=== PATIENT | female | born 1960 | race Caucasian/White ===

== ENCOUNTER → 2017-07-29 17:47 | Outpatient (CLI) | payer OTHER, SELFPAY ==
--- NOTE | 2017-07-29 17:50 | DI.RAD.S_ITS ---
PROCEDURE: XR KNEE RT 3V INDICATIONS: knee sprain TECHNIQUE: 3 views of the knee were acquired. COMPARISON: None. FINDINGS: Bones: No fractures or dislocations. No suspicious bony lesions. Soft tissues: No joint effusion. No suspicious soft tissue calcifications. IMPRESSION: No trauma found. Dictated by: Coy Mancera M.D. on 07/29/2017 at 20:54 Approved by: Coy Mancera M.D. on 07/29/2017 at 20:54
== END ==
PROVIDERS: Family Provider Family Medicine; PCP Family Medicine; Visit Provider Family Medicine
DX: S83.91XA Sprain of unspecified site of right knee, initial encounter (principal)
CPT/HCPCS: 73562

== ENCOUNTER → 2017-09-24 09:24 | Outpatient (CLI) | payer OTHER, SELFPAY | PROVIDERS: Family Provider Family Medicine; PCP Family Medicine; Visit Provider Physician Assistant | DX: Z53.8 Procedure and treatment not carried out for other reasons (principal) ==

== ENCOUNTER → 2017-09-24 09:30 | Outpatient (REF) | payer OTHER, SELFPAY ==
[2017-09-24 10:06] LABS: Influenza A and B by PCR Rapid Negative (Negative)
== END ==
LOC: LAB 09:30
PROVIDERS: Family Provider Family Medicine; PCP Family Medicine; Visit Provider Physician Assistant
DX: R68.89 Other general symptoms and signs (principal)
CPT/HCPCS: 87400

== ENCOUNTER 2017-09-24 10:23 | Emergency (ER) | payer OTHER, SELFPAY ==
[2017-09-24 10:25] VITALS: BP 131/68; PULSE 66; RESP 18; TEMP 36.6; O2SAT 100
[2017-09-24 11:05] VITALS: BP 111/85; PULSE 66; RESP 18; O2SAT 97
--- NOTE | 2017-09-24 11:19 | DI.RAD.S_ITS ---
PROCEDURE: XR CHEST 2V INDICATIONS: SOB TECHNIQUE: 2 views of the chest were acquired. COMPARISON: [facility], , CHEST 2 VIEW, 08/07/2011, 14:32. FINDINGS: Surgical changes and devices: None. Lungs and pleura: No pleural effusions or pneumothorax. Lungs are clear. Mediastinum: Mediastinal contours are normal. Heart size is normal. Bones and chest wall: No suspicious bony abnormalities. Soft tissues appear unremarkable. IMPRESSION: No acute pulmonary process. Dictated by: Cherelle Sawyer M.D. on 09/24/2017 at 12:27 Approved by: Cherelle Sawyer M.D. on 09/24/2017 at 12:27
--- NOTE | 2017-09-24 11:27 | ED.HA ---
HPI - Headache General Chief Complaint: Headache Stated Complaint: 'PNUMONIA' Time Seen by Provider: 09/24/17 10:44 Source: patient and family Mode of arrival: ambulatory Limitations: no limitations History of Present Illness HPI Narrative: Patient presents to the emergency department from the walk-in clinic for evaluation of multiple symptoms over the past few days. She has had frontal headache, sinus drainage and sore throat. Additionally she has had wheezing and cough productive of yellowish sputum. She has had subjective fever at home and is generally unwell. MD Complaint: headache Onset (ago): day(s) Onset description: gradual Location: frontal Quality: aching and throbbing Exacerbating factors: light and noise Context: occurred at rest Associated symptoms: fever, nausea, vomiting, cough and shortness of breath Other symptoms: cough Treatments prior to arrival: none Related Data Home Medications Medication Instructions Recorded Confirmed epinephrine [EpiPen] 0.3 mg IM Q30M PRN 09/24/17 09/24/17 Previous Rx's Medication Instructions Recorded levothyroxine 0.1 mg PO QAM #90 tab 10/07/16 albuterol sulfate 2 puff INHALATION Q4-6H PRN #1 each 09/24/17 prednisone See Label Instructions PO PER PKG 09/24/17 DIR #21 each Allergies Allergy/AdvReac Type Severity Reaction Status Date / Time venom-honey bee Allergy Mild Verified 09/24/17 09:13 [BEE VENOM (HONEY BEE)] No Known Drug Allergies Allergy Unknown Verified 09/24/17 09:13 [NO KNOWN DRUG ALLERGIES] Review of Systems Review of Systems All systems reviewed & are unremarkable except as noted in HPI and below Constitutional Reports body ache(s), Reports chills, Reports fatigue, Reports fever(s), Denies lethargy and Denies weakness Eyes Denies change in vision, Denies eye discharge, Denies irritation and Denies loss of vision ENT Ears, Nose, Mouth, and Throat: Denies change in voice, Reports otalgia, Reports nasal discharge, Denies neck pain, Reports post nasal drip and Denies sore throat Cardiovascular Denies chest pain, Denies irregular heart rhythm, Denies lightheadedness, Denies palpitations, Reports dyspnea, Denies dyspnea on exertion and Denies orthopnea Respiratory Reports cough, Reports dyspnea, Denies dyspnea on exertion and Denies wheezing Gastrointestinal Gastrointestinal: Denies abdominal pain, Denies change in bowel habits, Denies diarrhea, Denies nausea and Denies vomiting Genitourinary Denies hematuria, Denies flank pain, Denies urinary incontinence and Denies urinary urgency Musculoskeletal Denies neck pain Integumentary/Breasts Denies pruritus, Denies erythema, Denies rash and Denies wounds Neurologic Denies confusion, Denies loss of vision and Denies weakness Psychiatric Denies anxiety, Denies confusion, Denies depression, Denies homicidal ideation and Denies suicidal ideation Endocrine Reports fatigue and Denies palpitations Hematologic/Lymphatic Denies easy bruising Allergic/Immunologic Denies wheezing PFSH Family History Mother Stroke Social History Smoking Status: Former smoker alcohol intake: never Exam Narrative Exam Narrative: 57-year-old female in mild distress, clutching her forehead Initial Vital Signs Initial Vital Signs: Vital Signs Temperature 97.8 F 09/24/17 10:25 Pulse Rate 66 09/24/17 10:25 Respiratory Rate 18 09/24/17 10:25 Blood Pressure 131/68 H 09/24/17 10:25 Pulse Oximetry 100 09/24/17 10:25 Const General: cooperative, well developed and in distress Nutritional Appearance: well nourished and thin Orientation: alert, awake, oriented x3 and not confused [facility] Head: normocephalic and atraumatic Ears: external ears normal and TM's normal bilaterally Nose: external nose normal and No nasal discharge Face and sinus: sinuses nontender, face symmetric, no sinus tenderness and No dry mucous membranes Mouth: oral mucosae normal and moist mucous membranes Teeth and gingiva: dentition normal Throat: tonsils normal and uvula midline Eyes General: appearance normal, both eyes and all related structures Eyelids: eyelids normal Conjunctivae: conjunctivae normal Sclera: sclerae normal Pupils: PERRL EOM: EOM intact bilaterally Neck Neck: normal visual inspection, trachea midline, No lymphadenopathy, No midline deformity and No JVD Lymphatic: No lymphedema Chest Chest: normal inspection of the chest Resp Effort & Inspection: normal respiratory effort, able to speak in complete sentences, no respiratory distress and no use of accessory muscles Auscultation: no rales, no rhonchi and wheezes Cardio Rate: regular rate Rhythm: regular rhythm Heart Sounds: no click, no gallops, no murmurs and no rubs Pulses: normal peripheral pulses GI Inspection: non-distended Palpation: soft, no hepatosplenomegaly, No guarding, No pulsatile mass and No tender Auscultation: normal bowel sounds Back/Spine/Pelvis Back: No CVA tenderness Cervical Spine: cervical ROM normal and No pain with cervical ROM Thoracic/Lumbar Spine: thoracic and lumbar spine normal to inspection Skin General: no rashes or lesions noted, No jaundice and No petechiae Neuro General: alert, oriented x3, gait normal and no focal motor deficits Speech: speech normal Other: NIH Stroke Scale 1a. LOC: Patient is alert and keenly responsive (0) 1b. LOC Questions: Patient answers both LOC questions accurately (0) 1c. LOC Commands: Patient performs both tasks correctly (0) 2. Best Gaze: Normal (0) 3. Visual: No visual loss (0) 4. Facial palsy: Normal symmetrical movements (0) 5. Motor arm: No drift (0) 6. Motor leg: No drift (0) 7. Limb ataxia: Absent (0) 8. Sensory: Normal (0) 9. Best language: No aphasia; normal (0) 10. Dysarthria: Normal (0) 11. Extinction and inattention: No abnormality (0) NIHSS: 0 Extrem General: full ROM, no clubbing, cyanosis or edema, no pedal edema and no calf tenderness Psych Appearance: well kempt Mental Status: mental status grossly normal Attitude: cooperative Thought Content: normal and suicidality Judgment: judgment good Course Orders Ordered: ED Orders 09/24/17 11:19 XR chest 2V Stat 09/24/17 11:40 Basic Metabolic Panel Stat Complete Blood Count AUTO DIFF Stat Lactate (Lactic Acid) Stat Procalcitonin Stat Discontinued Medications Albuterol (Ventolin) 2.5 mg INH NOW PRN PRN Reason: Wheezing Last Admin: 09/24/17 12:45 Dose: 2.5 mg Albuterol/Ipratropium (Duoneb) 3 ml INH NOW ONE Stop: 09/24/17 12:23 Last Admin: 09/24/17 12:31 Dose: 3 ml Sodium Chloride (Normal Saline 0.9%) 1,000 mls @ 1,000 mls/hr IV BOLUS ONE Stop: 09/24/17 12:16 Last Infusion: 09/24/17 13:56 Dose: 0 mls/hr Admin: 09/24/17 11:42 Dose: 1,000 mls/hr Ketorolac Tromethamine (Toradol) 15 mg IV NOW ONE Stop: 09/24/17 11:18 Last Admin: 09/24/17 11:28 Dose: Ketorolac Tromethamine (Toradol) 15 mg IV NOW ONE Stop: 09/24/17 11:20 Last Admin: 09/24/17 11:42 Dose: 15 mg Methylprednisolone (Solu-Medrol 125 Mg Vial) 125 mg IV NOW ONE Stop: 09/24/17 12:23 Last Admin: 09/24/17 12:42 Dose: 125 mg Metoclopramide HCl (Reglan) 10 mg IV NOW ONE Stop: 09/24/17 11:18 Last Admin: 09/24/17 11:41 Dose: 10 mg Reevaluation(s) Reevaluation #1: Patient has near complete resolution of symptoms after some bronchodilators and steroids as well as fluids. Her headache is all but gone and her lungs are clear. Vital Signs - 8 hr 09/24/17 10:25 09/24/17 11:05 09/24/17 12:35 Temperature 97.8 F Pulse Rate 66 66 69 Respiratory Rate 18 18 Blood Pressure 131/68 H Blood Pressure [Left Arm] 111/85 H 111/85 H Pulse Oximetry 100 97 99 09/24/17 12:37 09/24/17 12:43 09/24/17 13:53 Temperature 98.0 F Pulse Rate 86 71 96 H Respiratory Rate 14 14 20 Blood Pressure Blood Pressure [Left Arm] 133/68 H Pulse Oximetry 95 98 98 MDM - Headache Lab Data Result diagrams: 09/24/17 11:40 09/24/17 11:40 Lab Results 09/24/17 09/24/17 09/24/17 Range/Units 11:40 11:40 11:40 WBC 5.7 (4.5-11.0) X10^3/uL RBC 5.18 (4.0-5.2) X10^6/uL Hgb 15.5 (12.0-16.0) g/dL Hct 45.6 (36-46) % MCV 88.0 (80-100) fL MCH 30.0 (26-34) PG MCHC 34.1 (30-36) % RDW 13.4 (11.6-14.8) % Plt Count 275 (150-400) X10^3/uL Neut % (Auto) 58.2 (50-75) % Lymph % (Auto) 23.7 L (25-40) % [place] % (Auto) 12.5 (3-14) % Eos % (Auto) 5.1 H (2-4) % Baso % (Auto) 0.5 (0-2) % Neut # (Auto) 3300 (9208-1281) /uL Sodium 142 (137-145) mmol/L Potassium 3.7 (3.4-5.1) mmol/L Chloride 105 (98-107) mmol/L Carbon Dioxide 29 (22-32) mmol/L BUN 12 (7-17) mg/dL Creatinine 0.60 (0.52-1.04) mg/dL Estimated GFR > 60.0 (>60) mL/min BUN/Creatinine Ratio 20.0 (6-22) Glucose 96 (70-100) mg/dL Lactate (0.7-2.1) mmol/L Calcium 9.3 (8.4-10.2) mg/dL Procalcitonin < 0.05 (<0.5) ng/mL 07//18 Range/Units 11:40 WBC (4.5-11.0) X10^3/uL RBC (4.0-5.2) X10^6/uL Hgb (12.0-16.0) g/dL Hct (36-46) % MCV (80-100) fL MCH (26-34) PG MCHC (30-36) % RDW (11.6-14.8) % Plt Count (150-400) X10^3/uL Neut % (Auto) (50-75) % Lymph % (Auto) (25-40) % [place] % (Auto) (3-14) % Eos % (Auto) (2-4) % Baso % (Auto) (0-2) % Neut # (Auto) (9777-9250) /uL Sodium (137-145) mmol/L Potassium (3.4-5.1) mmol/L Chloride (98-107) mmol/L Carbon Dioxide (22-32) mmol/L BUN (7-17) mg/dL Creatinine (0.52-1.04) mg/dL Estimated GFR (>60) mL/min BUN/Creatinine Ratio (6-22) Glucose (70-100) mg/dL Lactate 0.9 (0.7-2.1) mmol/L Calcium (8.4-10.2) mg/dL Procalcitonin (<0.5) ng/mL Imaging Data Chest x-ray: Radiologist's impression: PROCEDURE: XR CHEST 2V INDICATIONS: SOB TECHNIQUE: 2 views of the chest were acquired. COMPARISON: [facility], , CHEST 2 VIEW, 08/07/2011, 14:32. FINDINGS: Surgical changes and devices: None. Lungs and pleura: No pleural effusions or pneumothorax. Lungs are clear. Mediastinum: Mediastinal contours are normal. Heart size is normal. Bones and chest wall: No suspicious bony abnormalities. Soft tissues appear unremarkable. IMPRESSION: No acute pulmonary process. Dictated by: Cherelle Sawyer M.D. on 09/24/2017 at 12:27 Approved by: Cherelle Sawyer M.D. on 09/24/2017 at 12:27 [facility] Narrative Medical decision making narrative: Patient presents with multiple symptoms including headache, runny nose, sinus congestion and drainage cough and wheezing. She has had low-grade fever as. Widespread symptoms are more consistent with a viral syndrome, chest x-ray does not suggest pneumonia hand labs are unremarkable. Procalcitonin is undetectable. Patient had tremendous improvement with fluids and bronchodilators. Though patient does have yellowish sputum her presentation is most consistent with a viral syndrome and antibiotics are not indicated at this time. Discharge Plan Departure Patient Disposition: Home, Self-Care Clinical Impression: Upper respiratory infection, viral Discharge Date/Time: 09/24/17 14:00 Interventions: ED Discharge Assessment Last Done: 09/24/17 14:18 Instructions: DI for Viral Upper Respiratory Infection -- Adult Activity Restrictions/Additional Instructions: *You have been diagnosed with [ acute viral upper respiratory infection ] *What to do: *Take medications as directed. Prescriptions have been electronically transmitted to [facility] at [facility] request *Follow up with your primary care provider in 2-3 days, call for an appointment. Let them know you were seen in the Emergency Department and that we ask that you be seen in follow up *Return to ER if you should have any new, worsening or concerning symptoms, such as [worsening difficulty with breathing, chest pain, vomiting, other bothersome symptoms ] Prescriptions: New prednisone 10 mg tablets,dose pack See Label Instructions PO PER PKG DIR Qty: 21 RF: 0 albuterol sulfate 90 mcg/actuation aerosol powdr breath activated 2 puff INHALATION Q4-6H PRN (Reason: shortness of breath or wheezing) Qty: 1 RF: 0 No Action levothyroxine 100 MCG tablet 0.1 mg PO QAM Qty: 90 RF: 3 epinephrine [EpiPen] 0.3 mg/0.3 mL Auto-Injector 0.3 mg IM Q30M PRN (Reason: Allergic Reaction) RF: 0 Referrals: Malcolm Kinsey MD [Primary Care Provider] -
[2017-09-24] MEDS: METOCLOPRAMIDE 10 MG/2 ML INJ IV (11:41)
[2017-09-24] MEDS: KETOROLAC 60 MG/2 ML VIAL 15 MG IV (11:42)
[2017-09-24] MEDS: SODIUM CHLORIDE 0.9% 1,000 ML 1000 ML IV (11:42)
[2017-09-24 11:56] LABS: Add Manual Diff / Slide Review NO; Basophils Percent Auto 0.5 % (0-2); Eosinophils Percent Auto 5.1 % (2-4); Hematocrit 45.6 % (36-46); Hemoglobin 15.5 g/dL (12.0-16.0); Lymphocytes Percent Auto 23.7 % (25-40); Mean Corpuscular HGB Conc 34.1 % (30-36); Monocytes Percent Auto 12.5 % (3-14); Neutrophils Absolute Auto 3300 /uL (3000-5900); Neutrophils Percent Auto 58.2 % (50-75); Platelet Count 275 X10^3/uL (150-400); Red Blood Cell Count 5.18 X10^6/uL (4.0-5.2); Red Cell Distribution Width 13.4 % (11.6-14.8); White Blood Cell Count 5.7 X10^3/uL (4.5-11.0)
[2017-09-24 12:07] LABS: Blood Urea Nitrogen 12 mg/dL (7-17); Calcium 9.3 mg/dL (8.4-10.2); Carbon Dioxide 29 mmol/L (22-32); Chloride 105 mmol/L (98-107); Estimated Glomerular Filt Rate > 60.0 mL/min (>60); Glucose 96 mg/dL (70-100); HEMOLYSIS < 15 (0-50); Lactate (Lactic Acid) 0.9 mmol/L (0.7-2.1); Potassium 3.7 mmol/L (3.4-5.1); Sodium 142 mmol/L (137-145)
[2017-09-24] MEDS: ALBUTEROL/IPRATROPIUM 3 ML AMPUL INH (12:31)
[2017-09-24 12:35] VITALS: BP 111/85; PULSE 69; O2SAT 99
[2017-09-24 12:37] VITALS: PULSE 86; RESP 14; O2SAT 95
[2017-09-24] MEDS: methylPREDNISolone 125 MG/2 ML VIAL IV (12:42)
[2017-09-24 12:43] VITALS: PULSE 71; RESP 14; O2SAT 98
[2017-09-24] MEDS: ALBUTEROL 2.5 MG/3 ML NEB (ADULT) INH (12:45)
[2017-09-24 12:50] LABS: Procalcitonin < 0.05 ng/mL (<0.5)
[2017-09-24 13:53] VITALS: BP 133/68; PULSE 96; RESP 20; TEMP 36.7; O2SAT 98
== END 2017-09-24 14:00 | disposition home or self-care (01) ==
PROVIDERS: Emergency Provider Emergency Medicine; Family Provider Family Medicine; PCP Family Medicine
DX: J06.9 Acute upper respiratory infection, unspecified (principal); B97.89 Other viral agents as the cause of diseases classified elsewhere
CPT/HCPCS: 36591; 71046; 80048; 83605; 84145; 85025; 87400; 94640; 96361; 96374; 96375; 99283; 99285; J1885; J2765; J2930; J7613

== ENCOUNTER → 2017-12-25 06:31 | Outpatient (CLI) | payer OTHER, SELFPAY ==
--- NOTE | 2017-12-25 06:34 | DI.MRI.S_ITS ---
PROCEDURE: MR KNEE RT WO CON INDICATIONS: Right knee pain TECHNIQUE: Noncontrast sagittal PD fast spin echo and T2 fast spin echo with fat saturation, sagittal 3-D FLASH with fat saturation; coronal T1 spin echo and PD fast spin echo with fat saturation, and axial PD fast spin echo with fat saturation through the knee. COMPARISON: [facility], CR, XR KNEE RT 3V, 07/29/2017, 17:51. FINDINGS: Image quality: Excellent. Menisci: The medial and lateral menisci demonstrate normal morphology and internal signal. The meniscal root ligaments appear intact. Cruciate ligaments: The anterior and posterior cruciate ligaments appear intact. Medial structures: The medial collateral ligament appears intact. Visualized portions of the pes anserinus tendons appear normal. No abnormal bursal fluid. Lateral structures: The lateral collateral ligament, long and short heads of the biceps femoris tendon appear intact. The popliteus tendon appears normal. Iliotibial band appears normal. Anterior structures: The quadriceps and patellar tendons appear intact. There is mild T2 signal alteration within the patellar tendon at the patellar insertion site. Patellar alignment is normal. No femoral trochlear dysplasia or ventral trochlear prominence. No edema in the infrapatellar fat pad. Bones and cartilage: No bone marrow contusions or fractures. Moderate cartilage loss overlies the medial patellar facet. Moderate diffuse articular cartilage loss overlies the mid and anterior weightbearing aspects of the medial femoral condyle. Mild diffuse articular cartilage loss overlies the weightbearing aspects of the medial tibial plateau. Mild diffuse articular cartilage loss overlies the weightbearing aspects of the lateral femoral condyle and lateral tibial plateau. Joint space: There is physiologic knee joint fluid. No Galloway's cyst. Normal appearing synovial plicae are incidentally noted. IMPRESSION: 1. No internal derangement. 2. Tricompartmental articular cartilage loss. 3. Mild patellar tendinitis. Dictated by: Nohemi Levy M.D. on 12/25/2017 at 9:04 Approved by: Nohemi Levy M.D. on 12/25/2017 at 9:07
== END ==
PROVIDERS: Family Provider Family Medicine; PCP Family Medicine; Visit Provider Registered Nurse
DX: M25.561 Pain in right knee (principal); M76.51 Patellar tendinitis, right knee
CPT/HCPCS: 73721

== ENCOUNTER → 2018-04-27 09:11 | Outpatient (CLI) | payer OTHER, SELFPAY ==
[2018-04-27 10:15] LABS: Cholesterol 228 mg/dL (140-199); HDL Cholesterol 75 mg/dL (40-60); LDL Cholesterol Calculated 139 mg/dL (<100); Triglycerides 70 mg/dL (35-150)
[2018-04-27 10:41] LABS: Thyroid Stimulating Hormone 7.37 uIU/mL (0.47-4.68)
== END ==
PROVIDERS: Family Provider Family Medicine; PCP Family Medicine; Visit Provider Family Medicine
DX: E03.9 Hypothyroidism, unspecified (principal); E78.2 Mixed hyperlipidemia
CPT/HCPCS: 36415; 80061; 84443

== ENCOUNTER → 2018-04-30 15:14 | Outpatient (CLI) | payer OTHER, SELFPAY ==
--- NOTE | 2018-04-30 15:18 | DI.RAD.S_ITS ---
PROCEDURE: XR SHOULDER LT MIN 2V INDICATIONS: pain TECHNIQUE: 3 views of the shoulder were acquired. COMPARISON: None. FINDINGS: Bones: No fractures or dislocations. No suspicious bony lesions. Visualized ribs appear intact. Soft tissues: No suspicious soft tissue calcifications. IMPRESSION: No fracture or dislocation. Dictated by: Iraj Espino M.D. on 04/30/2018 at 17:18 Approved by: Iraj Espino M.D. on 04/30/2018 at 17:19
--- NOTE | 2018-04-30 15:18 | DI.RAD.S_ITS ---
PROCEDURE: XR CERVICAL SPINE 2V OR 3V INDICATIONS: pain TECHNIQUE: 3 view(s) of the cervical spine were acquired. COMPARISON: None. FINDINGS: Bones: No fractures or dislocations to the T1 level. There is straightening of cervical curvature. The lateral masses of C1 appear intact on the odontoid view. No suspicious bony lesions. There is degenerative disc disease, moderate at C5-C6 and C6-C7, mild at C3-C4 and C4-C5. Soft tissues: No prevertebral soft tissue swelling. IMPRESSION: Modderate degenerative disc disease. Dictated by: Iraj Espino M.D. on 04/30/2018 at 17:19 Approved by: Iraj Espino M.D. on 04/30/2018 at 17:23
== END ==
PROVIDERS: PCP Family Medicine; Visit Provider Family Medicine
DX: M25.512 Pain in left shoulder (principal); M50.31 Other cervical disc degeneration, high cervical region
CPT/HCPCS: 72040; 73030

== ENCOUNTER → 2018-05-11 16:09 | Outpatient (CLI) | payer OTHER, SELFPAY | PROVIDERS: PCP Family Medicine; Visit Provider Family Medicine | DX: M85.88 Other specified disorders of bone density and structure, other site (principal); Z78.0 Asymptomatic menopausal state; E07.9 Disorder of thyroid, unspecified; M06.9 Rheumatoid arthritis, unspecified; Z82.62 Family history of osteoporosis; Z87.891 Personal history of nicotine dependence | CPT/HCPCS: 77080 ==

== ENCOUNTER → 2018-06-04 10:36 | Outpatient (CLI) | payer OTHER, SELFPAY | PROVIDERS: PCP Family Medicine; Visit Provider Family Medicine | DX: M47.812 Spondylosis without myelopathy or radiculopathy, cervical region (principal); M79.2 Neuralgia and neuritis, unspecified | CPT/HCPCS: 95885; 95886; 95910 ==

== ENCOUNTER → 2018-06-22 11:16 | Outpatient (CLI) | payer OTHER, SELFPAY ==
--- NOTE | 2018-06-22 11:17 | DI.MG.S_ITS ---
BILATERAL DIGITAL SCREENING MAMMOGRAM 3D/2D WITH CAD: 06/22/2018 CLINICAL: Routine screening. Comparison is made to exam dated: 06/05/2006 [facility]. The tissue of both breasts is heterogeneously dense. This may lower the sensitivity of mammography. Current study was also evaluated with a Computer Aided Detection (CAD) system. There is a focal asymmetry in the left breast at 2 o'clock middle depth. No other significant masses, calcifications, or other findings are seen in either breast. IMPRESSION: INCOMPLETE: NEEDS ADDITIONAL IMAGING EVALUATION The focal asymmetry in the left breast is indeterminate. Additional views with possible ultrasound are recommended. This exam was interpreted at Station ID: [id number]. NOTE: For mammograms, a report in lay terms will be sent to the patient. Approximately 15% of breast malignancies will not be visualized mammographically. In the management of a palpable breast mass, a negative mammogram must not discourage biopsy of a clinically suspicious lesion. Electronically Signed By: Kacy luna/marisol:06/22/2018 12:46:29 letter sent: Additional Imaging Needed ACR BI-RADS Category 0: Incomplete [id number]
== END ==
PROVIDERS: PCP Family Medicine; Visit Provider Family Medicine
DX: Z12.31 Encounter for screening mammogram for malignant neoplasm of breast (principal)
CPT/HCPCS: 77063; 77067

== ENCOUNTER → 2018-07-13 09:48 | Outpatient (CLI) | payer OTHER, SELFPAY ==
--- NOTE | 2018-07-13 09:51 | DI.MG.S_ITS ---
UNILATERAL LEFT DIGITAL DIAGNOSTIC MAMMOGRAM 3D/2D WITH ADDITIONAL VIEWS: 07/13/2018 CLINICAL: Additional evaluation requested from prior study. Comparison is made to exams dated: 06/22/2018 mammogram and 06/05/2006 mammogram - [facility]. The tissue of left breast is heterogeneously dense. This may lower the sensitivity of mammography. There is 1.1 cm oval equal density focal asymmetry in the left breast at 1 o'clock middle depth. This is seen in additional views. No other significant masses or calcifications are seen in the breast. IMPRESSION: INCOMPLETE: NEEDS ADDITIONAL IMAGING EVALUATION The 1.1 cm oval equal density focal asymmetry in the left breast is indeterminate. An ultrasound is recommended. This exam was interpreted at Station ID: [id number]. NOTE: For mammograms, a report in lay terms will be sent to the patient. Approximately 15% of breast malignancies will not be visualized mammographically. In the management of a palpable breast mass, a negative mammogram must not discourage biopsy of a clinically suspicious lesion. SUMMARY: The recommended ultrasound is scheduled to immediately follow this examination. Electronically Signed By: Ronen etienne/marisol:07/13/2018 10:25:11 ACR BI-RADS Category 0: Incomplete [id number]
--- NOTE | 2018-07-13 09:51 | DI.US.S_ITS ---
ULTRASOUND OF LEFT BREAST: 07/13/2018 CLINICAL: Patient returns today to evaluate a focal asymmetry in the left breast. Comparison is made to exams dated: 07/13/2018 mammogram, 06/22/2018 mammogram, and 06/05/2006 mammogram - [facility]. Color flow and real-time ultrasound of the left breast were performed. [place] scale images of the real-time examination were reviewed. There is 1.5 cm x 0.9 cm x 1.1 cm oval complex cyst in the left breast at 2 o'clock middle depth 4 cm from the nipple. This oval complex cyst is hypoechoic. This correlates with mammography findings. Color flow imaging demonstrates that there is no vascularity present. IMPRESSION: SUSPICIOUS OF MALIGNANCY The 1.5 cm x 0.9 cm x 1.1 cm oval cystic lesion in the left breast is consistent with a complex cyst and is at a low suspicion for malignancy. However, an ultrasound guided biopsy is recommended. Findings were discussed with the patient by Dr. Mancera during today's visit. This exam was interpreted at Station ID: [id number]. Electronically Signed By: Ronen Schroeder M.D. at/:07/13/2018 17:50:52 letter sent: Biopsy Required Ultrasound BI-RADS: 4a Suspicious abnormality - low suspicion for malignancy
== END ==
PROVIDERS: PCP Family Medicine; Visit Provider Family Medicine
DX: R92.8 Other abnormal and inconclusive findings on diagnostic imaging of breast (principal); N60.02 Solitary cyst of left breast
CPT/HCPCS: 76642; 77065; G0279

== ENCOUNTER → 2018-07-24 07:45 | Outpatient (CLI) | payer OTHER, SELFPAY ==
--- NOTE | 2018-07-24 | DI.MG.S_ITS ---
UNILATERAL LEFT DIGITAL DIAGNOSTIC MAMMOGRAM POST-NEEDLE BIOPSY: 07/24/2018 CLINICAL: Left breast cyst. Post clip placement. Comparison is made to exams dated: 07/13/2018 ultrasound, 07/13/2018 mammogram, 06/22/2018 mammogram, and 06/05/2006 mammogram - [facility]. The tissue of left breast is heterogeneously dense. This may lower the sensitivity of mammography. There is a marker clip in the appropriate position in the left breast at 2 o'clock middle depth. IMPRESSION: POST PROCEDURE MAMMOGRAM FOR MARKER PLACEMENT There was a successful marker clip placement in the left breast middle depth. This exam was interpreted at Station ID: [id number]. NOTE: For mammograms, a report in lay terms will be sent to the patient. Approximately 15% of breast malignancies will not be visualized mammographically. In the management of a palpable breast mass, a negative mammogram must not discourage biopsy of a clinically suspicious lesion. Electronically Signed By: Jerri goff/marisol:07/24/2018 09:25:28 ACR BI-RADS Category Post-procedure mammogram for marker placement
--- NOTE | 2018-07-24 | PATH_ITS ---
[facility] Accession Number: [id number] . 01 Material submitted: . breast - LEFT BREAST . 01 Clinical history: . 2:00 4CM FN . 01 Diagnosis: A. Left Breast, 2:00, 4 cm from Nipple, Biopsy: Fragments of cyst wall/dilated duct with associated histiocytic reaction, mild chronic inflammation, and rare microcalcifications. Background breast parenchyma with focal usual ductal hyperplasia, apocrine metaplasia, and associated microcalcifications. Negative for atypia, carcinoma in situ, and invasive malignancy. MRV/07/30/2018 . 01 Electronically signed: . Mae Blanco MD, Pathologist NPI- [id number] . 01 Gross description: . Received in formalin and labeled left breast 2 o'clock 4 cm from nipple. Tissue is received with plastic filter. Tissue is loose in container. Specimen consists of multiple fragments of lester-yellow soft tissue and minute fragments of hemorrhagic material measuring 2.2 x 0.5 x 0.3 cm in aggregate. All tissue is entirely submitted in one cassette. Per the requisition, the sample was collected on 07/24/2018 at 9:24 a.m. Total fixation time is between 24 and 48 hours. (MR:[id number]) /FRR . 01 Microscopic: . Special stains are performed on block A1, including AFB, GMS for fungus, and Gram stain, with appropriately staining external controls. The biopsy is negative for bacterial or fungal organisms. Deeper levels are examined. There is no polarizable material. . 01 Pathologist provided ICD-10: N63.20 . 01 CPT . 819619, 467976, 987112, 975406 Performed at: [facility] [address] [place] [address] [id number] MD Michael Antoine MD Phone: [phone]
--- NOTE | 2018-07-24 07:48 | DI.US.S_ITS ---
ULTRASOUND GUIDED BIOPSY LEFT BREAST USING VACUUM DEVICE WITH MARKING DEVICE INSERTED AND POST DIGITAL MAMMOGRAPHIC AND ULTRASOUND IMAGIN07/24/2018 CLINICAL: Left breast mass. PATIENT CONSENT: Risks (minor bleeding, infection, vasovagal reaction and repeat procedure), benefits and alternatives were explained to the patient and written informed consent was obtained. Correlation is made to exams dated: 07/24/2018 mammogram, 07/13/2018 ultrasound, 07/13/2018 mammogram, 06/22/2018 mammogram, 06/05/2006 mammogram, and 06/05/2006 [facility]. An ultrasound guided biopsy using real-time ultrasound was performed for the 1.5 cm x 0.9 cm x 1.1 cm oval cyst located in the left breast at 2 o'clock middle depth. This was described on the previous ultrasound report. The skin was prepped in the usual manner. Local anesthetic was administered to the access site. A skin gibran was made in the breast. The abnormality was approached from the lateral aspect. A 13 gauge biopsy needle was placed adjacent to the abnormality under ultrasound guidance. Once the needle was documented to be in the correct location, three specimens were obtained using the Mammotome biopsy system. A celero clip was inserted into the biopsy cavity. A sterile dressing was applied to the access site. Post procedure digital mammographic and ultrasound imaging demonstrates the location device at the targeted area and partial removal of the abnormality. The specimens were sent to the laboratory for pathological analysis. IMPRESSION: ULTRASOUND GUIDED BIOPSY BENIGN Ultrasound guided biopsy of the 1.5 cm x 0.9 cm x 1.1 cm cyst in the left breast at 2 o'clock middle depth was successful. Pathology indicates benign fragments of cyst wall/dilated ducts, apocrine metaplasia (AM), usual ductal hyperplasia ([facility]U), and chronic inflammation. Pathology results are concordant with imaging findings. Return to annual mammogram screening schedule is recommended. This exam was interpreted at Station ID: [id number]. Jerri goff,aty/:08/03/2018 17:32:12
== END ==
PROVIDERS: PCP Family Medicine; Visit Provider Family Medicine
DX: N60.02 Solitary cyst of left breast (principal); N60.82 Other benign mammary dysplasias of left breast; N61.0 Mastitis without abscess; R92.0 Mammographic microcalcification found on diagnostic imaging of breast
CPT/HCPCS: 19083; 77065

== ENCOUNTER 2018-12-29 13:34 | Emergency (ER) | payer OTHER, SELFPAY ==
--- NOTE | 2018-12-29 13:36 | DI.RAD.S_ITS ---
PROCEDURE: XR ANKLE LT MIN 3V INDICATIONS: rolled ankle TECHNIQUE: 3 views of the ankle were acquired. COMPARISON: None. FINDINGS: Bones: No fractures or dislocations. Ankle mortise is normally aligned. No suspicious bony lesions. Soft tissues: No tibiotalar joint effusion. Achilles tendon appears normal. IMPRESSION: No gross acute ankle fracture or dislocation. Mild soft tissue swelling over lateral malleolus. Dictated by: Devon Lemons M.D. on 12/29/2018 at 13:55 Approved by: Devon Lemons M.D. on 12/29/2018 at 14:03
[2018-12-29 13:37] VITALS: BP 141/80; PULSE 71; RESP 15; TEMP 36.4; O2SAT 100; BMI 23.7
[2018-12-29 14:00] VITALS: PULSE 88
--- NOTE | 2018-12-29 14:00 | PC.NURSE ---
Moving position from squatting to standing, took a step and then felt pain in foot/ankle. lower extremity appears atraumatic. No gross deformity.
[2018-12-29] MEDS: ACETAMINOPHEN 325 MG TABLET 975 MG PO (14:12)
--- NOTE | 2018-12-29 14:26 | ED_ITS ---
HPI - Extremity Injury (Lower) <Abel PerezALEM RichardP - Last Filed: 12/29/18 16:57> General Chief Complaint: Extremity Injury, Lower Stated Complaint: POP IN LEFT ANKLE Time Seen by Provider: 12/29/18 13:41 Source: patient and family Mode of arrival: Wheelchair Limitations: no limitations History of Present Illness HPI Narrative: This is 58 year old female, non-smoker, who presents to ED with family with chief complaint of left lateral malleolar pain. The left leg got numb after she was sitting on the floor with her lower leg folded under her upper leg, she stood up to stretch and put her left leg forward and felt immediately something pop in her ankle. Patient had difficult time bearing weight after this. Patient had left foot surgery in the past. Patient denies tingling or numbness to her left lower leg. Patient states is able to move her toes. Related Data Home Medications Medication Instructions Recorded Confirmed epinephrine [EpiPen] 0.3 mg IM Q30M PRN 09/24/17 04/30/18 calcium carbonate 600 mg calcium 600 mg PO DAILY tab 05/13/18 (1,500 mg) tablet cholecalciferol (vitamin D3) 2,000 2,000 unit PO DAILY 05/13/18 unit capsule Previous Rx's Medication Instructions Recorded albuterol sulfate 2 puff INHALATION Q4-6H PRN #1 each 09/24/17 levothyroxine 112 mcg tablet 112 mcg PO QAM #90 tab 04/30/18 Allergies Allergy/AdvReac Type Severity Reaction Status Date / Time venom-honey bee Allergy Mild Verified 12/29/18 13:36 [BEE VENOM (HONEY BEE)] No Known Drug Allergies Allergy Unknown Verified 12/29/18 13:36 [NO KNOWN DRUG ALLERGIES] Review of Systems <Abel PerezHansNohemi [facility] - Last Filed: 12/29/18 16:57> Review of Systems Narrative: General: Denies fever, chills, fatigue, malaise, sweats. HEENT: Denies sinus pain, ear pain, sore throat, difficulty swallowing, dizziness. Respiratory: Denies dyspnea, cough, wheezing, hemoptysis, sputum. Cardiovascular: Denies chest pain, palpitations, orthopnea, edema. Gastrointestinal: Denies nausea, vomiting, abdominal pain, diarrhea, constipation, melena. : Denies dysuria, frequency, incontinence, hematuria, urinary retention. Musculoskeletal: See HPI Skin: Denies rash, skin lesions, or other. Neurologic: Denies weakness, headache, numbness, change in speech, confusion, seizures, incoordination. Psychiatric: No concerning psychosocial issues. 12-point review of systems is negative except for those stated above. Patient History <MADISON Chen - Last Filed: 12/29/18 16:57> Medical History Carpal tunnel syndrome (Chronic ~2011) Foot pain (Chronic ~1984) Hyperthyroidism (Chronic) Migraines (Chronic ~1986) Rheumatoid arthritis (Chronic ~1994) Total blindness (Chronic ~1958) Surgical History Anesthesia (Resolved) History of foot surgery (Resolved ~1986) History of hand surgery (Resolved ~2011) Family History Mother Stroke Social History Smoking Status: Former smoker alcohol intake: never alcohol intake frequency: 0-2 drinks per day Substance Use Type: does not use Exam <MADISON Chen - Last Filed: 12/29/18 16:57> Narrative Exam Narrative: General appearance: well developed, well nourished, in obvious distress from pain. Head: normocephalic, atraumatic, no scalp lesions, non-tender. Eye: pupil equal, round. EOMI. Nose: nares patent. Oral: mucosa moist. Neck/Thyroid: neck supple, full range of motion, no visible masses. Skin: no suspicious rashes, lesions over visible areas. Warm and dry. Heart: no clubbing, no cyanosis, no edema. Lungs: Breathing even and unlabored. No stridor. No accessory muscles used. Chest: normal shape and expansion. Abdomen: non-obese, non-distended. Neurologic: alert and oriented. Cognitive exam, DESTATICIZER FEEDER and PNS grossly intact on informal exam. Psych: good eye contact, normal affect. Initial Vital Signs Initial Vital Signs: Vital Signs Temperature 97.6 F 12/29/18 13:37 Pulse Rate 71 12/29/18 13:37 Respiratory Rate 15 12/29/18 13:37 Blood Pressure 141/80 H 12/29/18 13:37 Pulse Oximetry 100 12/29/18 13:37 Extrem Left lower extremity: hip/thigh Details: normal to inspection; no tenderness, knee Details: normal to inspection; no tenderness, lower leg Details: normal to inspection; no tenderness and edema noted, ankle Details: normal to inspection, tenderness Location: of the lateral malleolus, swelling (Very mild lateral mal leolar), abnormal ROM Details: pain with active ROM, pain with passive ROM and with range as follows (Left toes) and achilles tendon exam abnormal (Due to pain) Details: no step-off noted and no tenderness to palpation; no warmth, no lacerations and no ecchymosis and foot Details: normal capillary refill, normal to inspection, toes with normal ROM, vascular exam Details: dorsalis pedis pulse present and normal capillary refill and motor-sensory exam Details: light-touch normal <Bassam Gonzalez DO - Last Filed: 12/29/18 17:03> Initial Vital Signs Initial Vital Signs: Vital Signs Temperature 97.6 F 12/29/18 13:37 Pulse Rate 71 12/29/18 13:37 Respiratory Rate 15 12/29/18 13:37 Blood Pressure 141/80 H 12/29/18 13:37 Pulse Oximetry 100 12/29/18 13:37 Procedures <MADISON Chen - Last Filed: 12/29/18 16:57> Orthopedic Splinting/Casting Injury #1: Side: left Lower Extremity Injury Location: ankle Lower Extremity Immobilizer: AirCast Other Orthopedic Equipment: other (Declined crutches reports will get a pair from [employer]) Post splinting neuro exam: intact Post splinting vascular exam: intact Placed by: Nursing Scores <MADISON Chen - Last Filed: 12/29/18 16:57> GCS [place] coma scale eye opening: Spontaneous Kavin coma scale verbal response: Orientated [place] coma scale motor response: Obey commands [place] coma scale total score: 15 Course <MADISON Chen Last Filed: 12/29/18 16:57> Orders Ordered: ED Orders 12/29/18 13:36 XR ankle LT min 3V Stat Discontinued Medications Acetaminophen (Tylenol) 975 mg PO NOW ONE Stop: 12/29/18 13:57 Last Admin: 12/29/18 14:12 Dose: 975 mg Documented by: PAO Vital Signs Vital signs: Vital Signs - 8 hr 12/29/18 13:37 12/29/18 14:00 12/29/18 15:00 Temperature 97.6 F Pulse Rate 71 80 Pulse Rate [Right Dorsalis Pedis] 88 Respiratory Rate 15 12 Blood Pressure 141/80 H Blood Pressure [Left Arm] 142/72 H Pulse Oximetry 100 98 <Bassam Gonzalez DO - Last Filed: 12/29/18 17:03> Orders Ordered: ED Orders 12/29/18 13:36 XR ankle LT min 3V Stat Discontinued Medications Acetaminophen (Tylenol) 975 mg PO NOW ONE Stop: 12/29/18 13:57 Last Admin: 12/29/18 14:12 Dose: 975 mg Documented by: PAO Vital Signs Vital signs: Vital Signs - 8 hr 12/29/18 13:37 12/29/18 14:00 12/29/18 15:00 Temperature 97.6 F Pulse Rate 71 80 Pulse Rate [Right Dorsalis Pedis] 88 Respiratory Rate 15 12 Blood Pressure 141/80 H Blood Pressure [Left Arm] 142/72 H Pulse Oximetry 100 98 MDM - Extremity Injury (Lower) <MADISON Chen - Last Filed: 12/29/18 16:57> Differential Diagnosis Differential diagnosis: Likely ankle sprain and strain and ankle fracture Medical Records Attestation: I reviewed the patient's medical records. Imaging Data XR-Ankle LT: Radiologist's impression: [address] [address] XRay Report Signed Patient: Mary Ramirez AMR#: [id number] : 9Acct:[id number] Age/Sex: 58 / FDate of Service: 12/29/18 Loc: ED Accession Number: [id number] Procedure: XR ankle LT min 3V Ordering Provider: Bassam Gonzalez D.O. PROCEDURE: XR ANKLE LT MIN 3V INDICATIONS: rolled ankle TECHNIQUE: 3 views of the ankle were acquired. COMPARISON: None. FINDINGS: Bones: No fractures or dislocations. Ankle mortise is normally aligned. No suspicious bony lesions. Soft tissues: No tibiotalar joint effusion. Achilles tendon appears normal. IMPRESSION: No gross acute ankle fracture or dislocation. Mild soft tissue swelling over lateral malleolus. Dictated by: Devon Lemons M.D. on 12/29/2018 at 13:55 Approved by: Devon Lemons M.D. on 12/29/2018 at 14:03 [facility] Narrative Medical decision making narrative: This is 58-year-old female presents to ED with left lateral ankle pain and popping sensation after she stood up because of numbness from sitting position to stretch her left back and stepped forward. There was no obvious deformity noted per inspection. Patient has significant tenderness with very light touch on left lateral ankle. Achilles tendon exam was normal. Motor exam on her left toes, light sensory exam, and pedal pulse were intact. X-ray test shows no acute findings. Given patient's significant discomfort on affected site, patient had placed done air cast immobilizer for comfort. Patient declined Motrin due to stomach irritation. Patient was medicated with Tylenol and advised continue to take this along RICE therapy. Crutches were offered but patient and family declined stating that they will get it from [employer] store. Return precautions were discussed with the patient and advised reimaging test patient persists after 10 days to 2 weeks. Patient and family verbalized understanding and agrees with the treatment plan. Discharge Plan Departure Patient Disposition: Home Clinical Impression: Ankle sprain and strain Discharge Date/Time: 12/29/18 15:03 Instructions: DI for Ankle Sprain Activity Restrictions/Additional Instructions: You have been diagnosed with [ankle sprain. There was no acute findings per x- ray test such as dislocation or fracture]. What to do: Please use ?RICE? therapy such as Rest, Ice, Compression/Spliint/Acewra, and Elevation above the chest level. Ice the area for next 24-48 hrs after the initial injury. Air cast splint has applied for comfort. As soon as acute pain has decreased, please exercise or ankle with gentle stretch such as riding on alphabet with her foot. Please try to avoid getting swelling to the affected site since this may cause increasing pain. You could use OTC Tylenol and or Ibuprofen as needed for pain. Please monitor for increasing pain, swelling, tingling/numbness, unable to move affected/below the injury site, cool limbs. *Take your medications as directed. You can take [id number] Tylenol up to 4000 mg in 24 hr period. If you can tolerate Motrin or ibuprofen products this will be a good medicine for inflammation and pain. *Follow up with your primary care provider in 2-3 days, call for an appointment. Let them know you were seen in the ED and that we asked you to be seen in follow up. *Return to ED if you have any new, worsening, or concerning symptoms, such as [ chest pain, breathing difficulty, unable to tolerate fluids, weakness to her foot, sensation difficulty or any acute concerns]. Prescriptions: No Action cholecalciferol (vitamin D3) 2,000 unit capsule 2,000 unit PO DAILY RF: 0 calcium carbonate [Calcium 600] 600 mg calcium (1,500 mg) tablet 600 mg PO DAILY RF: 0 levothyroxine 112 mcg tablet 112 mcg PO QAM Qty: 90 RF: 3 epinephrine [EpiPen] 0.3 mg/0.3 mL Auto-Injector 0.3 mg IM Q30M PRN (Reason: Allergic Reaction) RF: 0 albuterol sulfate 90 mcg/actuation aerosol powdr breath activated 2 puff INHALATION Q4-6H PRN (Reason: shortness of breath or wheezing) Qty: 1 RF: 0 Referrals: Malcolm Kinsey MD [Primary Care Provider] - <Bassam Gonzalez DO - Last Filed: 12/29/18 17:03> Sign Out Provider Sign Out Attestation: Dr Gonzalez Co-Sign Statement: I was available for consultation during this patient's emergency department visit. This chart is signed by myself for administrative purposes only. I did not have direct contact with this patient during this visit. They were seen independently by the APC.
[2018-12-29 15:00] VITALS: BP 142/72; PULSE 80; RESP 12; O2SAT 98
== END 2018-12-29 15:03 | disposition home or self-care (01) ==
PROVIDERS: Emergency Provider Nurse Practitioner Family; PCP Family Medicine
DX: S93.402A Sprain of unspecified ligament of left ankle, initial encounter (principal); S96.912A Strain of unspecified muscle and tendon at ankle and foot level, left foot, initial encounter
CPT/HCPCS: 29540; 73610; 99282; 99283

== ENCOUNTER → 2018-12-31 17:35 | Outpatient (CLI) | payer OTHER, SELFPAY ==
--- NOTE | 2018-12-31 17:38 | DI.MRI.S_ITS ---
PROCEDURE: MR CERVICAL SPINE WO CON INDICATIONS: joint pain TECHNIQUE: Noncontrast sagittal T1 spin echo and T2 fast spin echo, sagittal STIR, foraminal oblique sagittal T2 fast spin echo, and axial gradient echo or T2 fast spin echo through the cervical spine. COMPARISON: None. FINDINGS: Image quality: Excellent. Alignment and Curvature: There is normal bony alignment. There is straightening of normal cervical spine curvature. Bone Marrow: Marrow demonstrates normal overall signal. Spinal Cord: Visualized spinal cord has normal size and signal. No cerebellar tonsillar herniation. Paraspinous Soft Tissues: No paravertebral masses. Prevertebral soft tissues are normal in thickness. C2-C3: Loss of disc signal. No central stenosis. No neural foraminal narrowing. No neural compression. C3-C4: Loss of disc signal and height. Moderate, diffuse disc bulge. Small central disc protrusion. Mild narrowing of the central canal. No neural foraminal narrowing. No neural compression. C4-C5: Loss of disc signal and mild loss of disc height. Mild, diffuse disc bulge. No central stenosis. No neural foraminal narrowing. No neural compression. C5-C6: Loss of disc signal. Mild, diffuse disc bulge. Mild narrowing of the central canal. Moderate bilateral uncovertebral joint hypertrophy. Severe bilateral neural foraminal narrowing with slight compression of the exiting C6 nerve roots. C6-C7: Loss of disc signal. Mild diffuse disc bulge. No central stenosis. No neural foraminal narrowing. No neural compression. C7-T1: Normal appearance. IMPRESSION: 1. Multilevel degenerative disc disease. 2. C5-C6 uncovertebral arthropathy. 3. Mild C3-C4 and C5-C6 central canal narrowing. 4. Severe bilateral C5-C6 neural foraminal narrowing. 5. Slight compression of the exiting bilateral C6 nerve roots secondary to neural foraminal narrowing. Dictated by: Laura Corona MD, PhD on 01/01/2019 at 10:31 Approved by: Laura Corona MD, PhD on 01/01/2019 at 10:57
== END ==
PROVIDERS: Family Provider Family Medicine; PCP Family Medicine; Visit Provider Family Medicine
DX: M47.812 Spondylosis without myelopathy or radiculopathy, cervical region (principal); M50.31 Other cervical disc degeneration, high cervical region; M48.02 Spinal stenosis, cervical region
CPT/HCPCS: 72141

== ENCOUNTER → 2020-05-16 10:06 | Outpatient (CLI) | payer OTHER, SELFPAY ==
--- NOTE | 2020-05-16 | DI.RAD.S_ITS ---
PROCEDURE: XR KNEE RT 3V INDICATIONS: RIGHT KNEE PAIN TECHNIQUE: 3 views of the knee were acquired. COMPARISON: [facility], , XR KNEE RT 3V, 07/29/2017, 17:51. FINDINGS: Bones: No fractures or dislocations. No suspicious bony lesions. Mild medial joint space narrowing and periarticular osteophyte compatible with mild osteoarthritis. Soft tissues: Small joint effusion. No suspicious soft tissue calcifications. IMPRESSION: Mild osteoarthritis and small knee joint effusion. Dictated by: Iraj Espino M.D. on 05/16/2020 at 11:17 Approved by: Iraj Espino M.D. on 05/16/2020 at 11:18
== END ==
PROVIDERS: Family Provider Family Medicine; PCP Family Medicine; Referring Provider Family Medicine; Visit Provider Family Medicine
DX: M25.561 Pain in right knee (principal); M17.11 Unilateral primary osteoarthritis, right knee; M25.461 Effusion, right knee
CPT/HCPCS: 73562

== ENCOUNTER → 2020-06-23 06:58 | Outpatient (CLI) | payer OTHER, SELFPAY ==
--- NOTE | 2020-06-23 | DI.MRI.S_ITS ---
PROCEDURE: MR KNEE RT WO CON INDICATIONS: Pain in right knee TECHNIQUE: Noncontrast sagittal PD fast spin echo and T2 fast spin echo with fat saturation, sagittal 3-D FLASH with fat saturation; coronal T1 spin echo and PD fast spin echo with fat saturation, and axial PD fast spin echo with fat saturation through the knee. COMPARISON: [facility], MR, MR KNEE RT WO CON, 12/25/2017, 6:54. FINDINGS: Image quality: Excellent. Menisci: There is new horizontal and vertically oriented high signal intensity traversing the medial meniscal body and posterior horn, demonstrating superior and inferior articular surface extension, indicating complex tearing. There is degenerative tearing of the free edge of the lateral meniscal body, new since the prior examination. Cruciate ligaments: There is moderate thinning and mild posterior bowing of the anterior cruciate ligament, indicating partial thickness tearing. Posterior cruciate ligament is intact. Medial structures: The medial collateral ligament appears intact. Visualized portions of the pes anserinus tendons appear normal. No abnormal bursal fluid. Lateral structures: The lateral collateral ligament demonstrates mild T2 signal elevation at the femoral origin. The long and short heads of the biceps femoris tendon appear intact. The popliteus tendon appears normal. Iliotibial band appears normal. Anterior structures: The quadriceps and patellar tendons appear intact. Mild T2 signal elevation within the quadriceps and patellar tendons at the patellar insertion sites. Patellar alignment is normal. No femoral trochlear dysplasia or ventral trochlear prominence. No edema in the infrapatellar fat pad. Bones and cartilage: No bone marrow contusions or fractures. Mild tricompartmental periarticular osteophyte formation. There is mild subchondral degenerative marrow edema within the mid weight-bearing aspect of the medial femoral condyle, as well as the mid/anterior weight-bearing aspects of the medial tibial plateau. There is mild degenerative marrow edema within the medial patellar facet. There is moderate articular cartilage loss diffusely overlying the weight-bearing aspects of the medial femoral condyle and medial tibial plateau. Mild articular cartilage loss diffusely overlies the weight-bearing aspects of the lateral femoral condyle and lateral tibial plateau. Moderate articular cartilage loss overlies the medial patellar facet. Articular cartilage fibrillation overlies the lateral patellar facet. Joint space: There is a small knee joint effusion and a trace Galloway's cyst. Normal appearing synovial plicae are incidentally noted. IMPRESSION: 1. Tricompartmental osteoarthritis with associated articular cartilage loss. 2. Partially thickness anterior cruciate ligament tear. 3. Medial and lateral meniscal tearing. 4. Mild quadriceps and patellar tendinopathy. 5. Knee joint effusion and Galloway's cyst. 6. Partial thickness lateral collateral ligament tear. Dictated by: Nohemi Levy M.D. on 06/23/2020 at 9:05 Approved by: Nohemi Levy M.D. on 06/23/2020 at 9:09
== END ==
PROVIDERS: Family Provider Family Medicine; PCP Family Medicine; Referring Provider Family Medicine; Visit Provider Family Medicine
DX: M25.561 Pain in right knee (principal); S83.241A Other tear of medial meniscus, current injury, right knee, initial encounter; S83.281A Other tear of lateral meniscus, current injury, right knee, initial encounter; S83.511A Sprain of anterior cruciate ligament of right knee, initial encounter; S83.421A Sprain of lateral collateral ligament of right knee, initial encounter; M17.11 Unilateral primary osteoarthritis, right knee; M71.21 Synovial cyst of popliteal space [Baker], right knee; M25.461 Effusion, right knee
CPT/HCPCS: 73721

== ENCOUNTER 2020-07-04 09:35 | Emergency (ER) | payer OTHER, SELFPAY ==
[2020-07-04 09:35] VITALS: BP 143/75; PULSE 78; RESP 14; TEMP 37.1; O2SAT 97
--- NOTE | 2020-07-04 09:44 | ED.GENADULT ---
HPI - General Adult General Chief complaint: Extremity Injury, Lower Stated complaint: right knee pain, cyst, torn meniscus, fall this am Time Seen by Provider: 07/04/20 09:39 Source: patient Mode of arrival: Wheelchair Limitations: no limitations History of Present Illness HPI narrative: Patient is a 60-year-old female who is here for evaluation of a fall that she sustained after having his sudden increase in pain in her right knee. She has had right knee issues for several weeks if not months now. She had an MRI performed at the end of last month for evaluation of this. She does not know the results of this MRI. She has an appointment later this month with orthopedics to discuss the outcome in further treatment. She states that today she had a sudden increase in the pain which caused her to fall over. She reports no injuries from the fall. Has continued pain in her right knee and burning in the back of her right knee. Related Data Home Medications Medication Instructions Recorded Confirmed epinephrine [EpiPen] 0.3 mg IM Q30M PRN 09/24/17 02/15/19 calcium carbonate 600 mg calcium 600 mg PO DAILY tab 05/13/18 02/15/19 (1,500 mg) tablet cholecalciferol (vitamin D3) 50 2,000 unit PO DAILY 05/13/18 02/15/19 mcg (2,000 unit) capsule Previous Rx's Medication Instructions Recorded albuterol sulfate 2 puff INHALATION Q4-6H PRN #1 each 09/24/17 amoxicillin 875 mg-potassium 1 tab PO BID #20 tab 02/15/19 clavulanate 125 mg tablet levothyroxine 112 mcg tablet 112 mcg PO QAM #90 tab 07/19/19 hydrocodone-acetaminophen 1 tab PO Q4-6H PRN #14 tab 07/04/20 meloxicam [Mobic] 15 mg PO DAILY PRN #30 tab 07/04/20 ondansetron 4 mg PO Q6H PRN #10 tab 07/04/20 Allergies Allergy/AdvReac Type Severity Reaction Status Date / Time venom-honey bee Allergy Mild Verified 02/15/19 14:15 [BEE VENOM (HONEY BEE)] No Known Drug Allergies Allergy Unknown Verified 02/15/19 14:15 [NO KNOWN DRUG ALLERGIES] Review of Systems Constitutional Constitutional: Denies fatigue and Denies headache(s) Eyes Eyes: Denies change in vision ENT Ears, Nose, Mouth, and Throat: Denies headache(s) and Denies sore throat Cardiovascular Cardiovascular: Denies chest pain and Denies dyspnea Respiratory Respiratory: Denies dyspnea Gastrointestinal Gastrointestinal: Denies abdominal pain Musculoskeletal Musculoskeletal: Denies tingling Comments: Right knee pain Integumentary/Breasts Skin/Breast: Denies lesions and Denies rash Neurologic Neurologic: Denies behavioral changes, Denies headache(s) and Denies tingling Psychiatric Psychiatric: Denies behavioral changes Endocrine Endocrine: Denies fatigue Hematologic/Lymphatic On Anticoagulants: No Allergic/Immunologic Allergic/Immunologic: Denies urticaria Patient History Medical History (Updated 07/04/20 @ 10:13 by Bassam Gonzalez DO) Carpal tunnel syndrome (~2011) Foot pain (~1984) Hyperthyroidism Migraines (~1986) Rheumatoid arthritis (~1994) Total blindness (~1958) Surgical History Anesthesia History of foot surgery (~1986) History of hand surgery (~2011) Family History Mother Stroke Social History Smoking Status: Former smoker alcohol intake: never Smoking Status: Former smoker alcohol intake frequency: 0-2 drinks per day Substance Use Type: does not use Exam Initial Vital Signs Initial Vital Signs: Vital Signs Temperature 98.8 F 07/04/20 09:35 Pulse Rate 78 07/04/20 09:35 Respiratory Rate 14 07/04/20 09:35 Blood Pressure 143/75 H 07/04/20 09:35 Pulse Oximetry 97 07/04/20 09:35 Const General: cooperative and No comfortable Limitations: mental status not altered [facility] Head: normal to inspection Resp Effort & Inspection: normal respiratory effort Cardio Rate: regular rate Pulses: dorsalis pedis present on the right Skin Lesions: no lesions Rashes: no rashes Neuro Cognition: normal cognition Speech: speech normal Extrem Other: Tenderness to palpation throughout the right knee. No effusion. Unable to evaluate further secondary to discomfort Psych Appearance: grossly normal and well kempt Course Orders Ordered: Discontinued Medications Hydromorphone HCl (Hydromorphone 1 Mg Inj) 1 mg IM NOW ONE Stop: 07/04/20 09:52 Last Admin: 07/04/20 10:07 Dose: 1 mg Documented by: Ketorolac Tromethamine (Ketorolac 30 Mg/Ml Vial) 30 mg IM NOW ONE Stop: 07/04/20 09:52 Last Admin: 07/04/20 10:07 Dose: 30 mg Documented by: Ondansetron HCl (Ondansetron 4 Mg Odt) 4 mg PO NOW ONE Stop: 07/04/20 09:55 Last Admin: 07/04/20 10:08 Dose: 4 mg Documented by: Vital Signs Vital signs: Vital Signs - 8 hr 07/04/20 09:35 07/04/20 10:00 Temperature 98.8 F Pulse Rate 78 Pulse Rate [Right Dorsalis Pedis] 80 Respiratory Rate 14 Blood Pressure 143/75 H Pulse Oximetry 97 Medical Decision Making Imaging Data Knee MRI: Radiologist's Impression: [address] [id number] Resonance ReportSigned Patient: Mary Ramirez [facility]#: [id number]: 9Acct:[id number]/Sex: 60 / FDate of Service: 06/23/20Loc: MRIAccession Number: [id number] Procedure: MR knee RT wo con Ordering Provider: Daksha Escudero MD PROCEDURE: MR KNEE RT WO CON INDICATIONS: Pain in right knee TECHNIQUE: Noncontrast sagittal PD fast spin echo and T2 fast spin echo with fat saturation, sagittal 3-D FLASH with fat saturation; coronal T1 spin echo and PD fast spin echo with fat saturation, and axial PD fast spin echo with fat saturation through the knee. COMPARISON: [facility], MR KNEE RT WO CON, 12/25/2017, 6:54. FINDINGS: Image quality: Excellent. Menisci: There is new horizontal and vertically oriented high signal intensity traversing the medial meniscal body and posterior horn, demonstrating superior and inferior articular surface extension, indicating complex tearing. There is degenerative tearing of the free edge of the lateral meniscal body, new since the prior examination. Cruciate ligaments: There is moderate thinning and mild posterior bowing of the anterior cruciate ligament, indicating partial thickness tearing. Posterior cruciate ligament is intact. Medial structures: The medial collateral ligament appears intact. Visualized portions of the pes anserinus tendons appear normal. No abnormal bursal fluid. Lateral structures: The lateral collateral ligament demonstrates mild T2 signal elevation at the femoral origin. The long and short heads of the biceps femoris tendon appear intact. The popliteus tendon appears normal. Iliotibial band appears normal. Anterior structures: The quadriceps and patellar tendons appear intact. Mild T2 signal elevation within the quadriceps and patellar tendons at the patellar insertion sites. Patellar alignment is normal. No femoral trochlear dysplasia or ventral trochlear prominence. No edema in the infrapatellar fat pad. Bones and cartilage: No bone marrow contusions or fractures. Mild tricompartmental periarticular osteophyte formation. There is mild subchondral degenerative marrow edema within the mid weight-bearing aspect of the medial femoral condyle, as well as the mid/anterior weight-bearing aspects of the medial tibial plateau. There is mild degenerative marrow edema within the medial patellar facet. There is moderate articular cartilage loss diffusely overlying the weight-bearing aspects of the medial femoral condyle and medial tibial plateau. Mild articular cartilage loss diffusely overlies the weight-bearing aspects of the lateral femoral condyle and lateral tibial plateau. Moderate articular cartilage loss overlies the medial patellar facet. Articular cartilage fibrillation overlies the lateral patellar facet. Joint space: There is a small knee joint effusion and a trace Galloway's cyst. Normal appearing synovial plicae are incidentally noted. IMPRESSION: 1. Tricompartmental osteoarthritis with associated articular cartilage loss. 2. Partially thickness anterior cruciate ligament tear. 3. Medial and lateral meniscal tearing. 4. Mild quadriceps and patellar tendinopathy. 5. Knee joint effusion and Galloway's cyst. 6. Partial thickness lateral collateral ligament tear. Dictated by: Nohemi Levy M.D. on 06/23/2020 at 9:05 Approved by: Nohemi Levy M.D. on 06/23/2020 at 9:09 [facility] Narrative Medical decision making narrative: MRI included in this note is for reference purposes only. It was not performed during this ED visit and not ordered by myself. I have low suspicion for fracture. She is neurovascularly intact. She has known issues with her knee and has a follow-up with Orthopedics already scheduled. I feel we can hold on radiologic studies. She states that anti-inflammatories cause upset stomach but she thinks that she has had meloxicam in the past. We did discuss the nature of her injuries. Will try to provide pain control. Will discharge home with this. She was given return precautions. She expressed understanding and agreement. Discharge Plan Departure Patient Disposition: Home Clinical Impression: Acute pain of right knee Instructions: DI for Meniscal Tear, DI for Knee Pain Activity Restrictions/Additional Instructions: I recommend that you elevate and ice your knee. You can use a knee brace/Luis Alberto bandage for your comfort. Keep your scheduled appointment with Orthopedics. Take the medications as directed. Return to the emergency department for any new or worsening symptoms. Prescriptions: New hydrocodone-acetaminophen 5-325 mg tablet 1 tab PO Q4-6H PRN (Reason: pain) Qty: 14 RF: 0 meloxicam [Mobic] 15 mg tablet 15 mg PO DAILY PRN (Reason: pain (scale score 1-3)) Qty: 30 RF: 0 ondansetron 4 mg tablet,disintegrating 4 mg PO Q6H PRN (Reason: nausea and vomiting) Qty: 10 RF: 0 No Action amoxicillin-pot clavulanate [Augmentin] 875-125 mg tablet 1 tab PO BID Qty: 20 RF: 0 cholecalciferol (vitamin D3) 2,000 unit capsule 2,000 unit PO DAILY RF: 0 calcium carbonate [Calcium 600] 600 mg calcium (1,500 mg) tablet 600 mg PO DAILY RF: 0 levothyroxine 112 mcg tablet 112 mcg PO QAM Qty: 90 RF: 3 epinephrine [EpiPen] 0.3 mg/0.3 mL Auto-Injector 0.3 mg IM Q30M PRN (Reason: Allergic Reaction) RF: 0 albuterol sulfate 90 mcg/actuation aerosol powdr breath activated 2 puff INHALATION Q4-6H PRN (Reason: shortness of breath or wheezing) Qty: 1 RF: 0 Referrals: Daksha Escudero MD [Primary Care Provider] -
[2020-07-04 10:00] VITALS: PULSE 80
[2020-07-04] MEDS: HYDROMORPHONE 1 MG INJ IM (10:07)
[2020-07-04] MEDS: KETOROLAC 30 MG/ML VIAL IM (10:07)
[2020-07-04] MEDS: ONDANSETRON 4 MG ODT PO (10:08)
[2020-07-04 10:54] VITALS: BP 125/63; PULSE 70; RESP 18; O2SAT 98
== END 2020-07-04 10:54 | disposition home or self-care (01) ==
PROVIDERS: Emergency Provider Emergency Medicine; Family Provider Family Medicine; PCP Family Medicine
DX: M25.561 Pain in right knee (principal)
CPT/HCPCS: 96372; 99283; J1170; J1885

== ENCOUNTER → 2021-12-06 08:30 | Outpatient (CLI) | payer OTHER, SELFPAY ==
--- NOTE | 2021-12-06 | DI.MG.S_ITS ---
BILATERAL DIGITAL SCREENING MAMMOGRAM 3D/2D WITH CAD: 12/06/2021 CLINICAL: Routine screening. Comparison is made to exams dated: 06/22/2018 mammogram, 06/05/2006 mammogram, and 07/24/2018 mammogram - [facility]. Both breasts are heterogeneously dense, which may obscure small masses (category c / 51-75% glandular tissue). Current study was also evaluated with a Computer Aided Detection (CAD) system. There is a biopsy clip in the left breast. No significant masses, calcifications, or other findings are seen in either breast. There has been no significant interval change. IMPRESSION: BENIGN There is no mammographic evidence of malignancy. A 1 year screening mammogram is recommended. Based on the Tyrer Cuzick model (a risk assessment model) the patient's lifetime risk is 12.6% and her 10 year risk is 5.7%. According to the ACR, ACS, and NCCN guidelines, an annual breast MRI exam along with mammogram is recommended if the patient's lifetime risk is 20% or greater. This exam was interpreted at Station ID: [id number]. NOTE: For mammograms, a report in lay terms will be sent to the patient. Approximately 15% of breast malignancies will not be visualized mammographically. In the management of a palpable breast mass, a negative mammogram must not discourage biopsy of a clinically suspicious lesion. Electronically Signed By: Onel moreau/marisol:12/06/2021 13:09:32 letter sent: Normal Exam ACR BI-RADS Category 2: Benign Finding(s) 3342F
== END ==
PROVIDERS: Family Provider Family Medicine; PCP Family Medicine; Referring Provider Family Medicine; Visit Provider Family Medicine
DX: Z12.31 Encounter for screening mammogram for malignant neoplasm of breast (principal)
CPT/HCPCS: 77063; 77067

== ENCOUNTER → 2022-01-02 09:33 | Outpatient (CLI) | payer OTHER, SELFPAY ==
[2022-01-02 10:46] LABS: COVID19 -Nasal RAPID Negative (Negative)
== END ==
PROVIDERS: Family Provider Family Medicine; PCP Family Medicine; Visit Provider Surgery
DX: Z20.822 Contact with and (suspected) exposure to COVID-19 (principal); Z01.812 Encounter for preprocedural laboratory examination
CPT/HCPCS: 87635; C9803

== ENCOUNTER 2022-01-03 10:29 | Day surgery (SDC) | payer OTHER, SELFPAY ==
[2022-01-03] VITALS (8 sets, daily range): BP systolic 90–131; BP diastolic 57–77; PULSE 55–72; RESP 9–18; TEMP 36.3–36.5; O2SAT 98–100; BMI 23.9
--- NOTE | 2022-01-03 | PATH_ITS ---
[facility] Accession Number: [id number] . 01 Material submitted: . PART A: colon - ASCENDING COLON POLYPS PART B: colon - DESCENDING COLON POLYPS . 01 Diagnosis: A. Ascending Colon Polyps, Biopsy: Tubular adenomas. . B. Descending Colon Polyps, Biopsy: Tubular adenomas. MRV 01/08/2022 1502 Local . 01 Electronically signed: . Anastasiya Gonzalez MD, Pathologist NPI- [id number] . 01 Gross description: . Part A: ASCENDING COLON POLYPS: Received in formalin are multiple fragment(s) of lester, soft tissue measuring 0.1 x 0.1 x 0.1 cm to 0.7 x 0.2 x 0.2 cm submitted entirely in 1 cassette(s) Part B: DESCENDING COLON POLYPS: Received in formalin are 2 fragment(s) of lester, soft tissue measuring 0.4 x 0.3 x 0.3 cm to 0.6 x 0.3 x 0.3 cm submitted entirely in 1 cassette(s) /MAXIMO 01/07/2022 1837 Local . 01 Pathologist provided ICD-10: D12.2, D12.4 . 01 CPT . 086580, 583151 Specimen Comment: A courtesy copy of this report has been sent to [phone] Performed at: 01 [facility] [address] [place] [address], [place], [place] [id number] MD Michael Antoine MD Phone: [phone]
[2022-01-03] MEDS: LACTATED RINGERS 1,000 ML 42 ML IV (11:02)
--- NOTE | 2022-01-03 11:29 | PM.HP.1 ---
History of Present Illness History of Present Illness Date Patient Seen: 01/03/22 Time Patient Seen: 11:29 Chief complaint: [facility] Narrative: Mary Reyes is a 61-year-old woman who had a positive Cologuard test. See the office note from last month for details. Patient History Medical History Carpal tunnel syndrome (~2011) Foot pain (~1984) Hyperthyroidism Migraines (~1986) Rheumatoid arthritis (~1994) Total blindness (~1958) Surgical History Anesthesia History of foot surgery (~1986) History of hand surgery (~2011) Family & Social History Family History Mother Stroke Social History: household members spouse Tobacco & Substance use: Smoking Status Former smoker alcohol intake never alcohol intake frequency 0-2 drinks per day Substance Use Type does not use Meds Home Medications and Allergies Home Medications Medication Instructions Recorded Confirmed Type epinephrine 0.3 mg/0.3 mL 0.3 mg IM Q30M PRN Allergic 09/24/17 01/03/22 History injection, auto-injector (EpiPen) Reaction cholecalciferol (vitamin D3) 50 2,000 unit PO DAILY 05/13/18 01/03/22 History mcg (2,000 unit) capsule levothyroxine 112 mcg tablet 112 mcg PO QAM #90 tabs 07/19/19 01/03/22 Rx Allergies Allergy/AdvReac Type Severity Reaction Status Date / Time venom-honey bee Allergy Mild Verified 01/03/22 10:42 [BEE VENOM (HONEY BEE)] No Known Drug Allergies Allergy Unknown Verified 01/03/22 10:42 [NO KNOWN DRUG ALLERGIES] Exam Vital Signs (past 8 hours): - 01/03/22 10:48 Temperature 97.3 F L Pulse Rate 72 Respiratory Rate 16 Blood Pressure 131/77 Pulse Oximetry 99 Oxygen Delivery Method Room Air Oxygen Delivery Method Room Air Const General: No acute distress Assessment & Plan Assessment and plan (1) Positive fecal occult blood test: Status: Acute Plan We reviewed the risks and benefits of colonoscopy and she would like to proceed. Time Spent With Patient Critical Care time: I spent a total of [] minutes of critical care time on this patient's care today; this time is exclusive of procedural time.
--- NOTE | 2022-01-03 11:49 | SUR.OPER ---
CECUM AT 1147
--- NOTE | 2022-01-03 12:09 | P.OP.COLON_ITS ---
Operative Date/Time/Diagnoses Date of procedure: 01/03/22 Time of procedure: 12:09 Pre-op diagnosis: Positive Cologuard test Post-op diagnosis: same Procedure & Clinicians Study performed: Colonoscopy Same procedure as scheduled: Yes Surgeon: Eduardo Anaya Procedure Notes Procedure in detail: Surgeon: Eduardo Anaya MD Anesthesia: MAC by Dr. Casiano Procedure: The patient was brought to the endoscopy suite, placed in left lateral decubitus position. The patient was connected to monitoring devices. A time-out was performed. Sedation was administered. Once the patient was adequately sedated, a digital rectal exam was performed and was normal. The scope was then inserted and advanced to the cecum where the appendiceal orifice was identified and photographed. The scope was then slowly withdrawn over greater than 6 minutes. The mucosa was thoroughly inspected. There were 2 sma ll polyps removed from the ascending colon, each about 5 mm with cold snare. There were sent together and labeled as ?ascending colon polyps?. There was an old tattoo near the hepatic flexure but no residual adenomatous tissue was seen. There were 2 small 5 mm polyps in the descending colon removed with cold snare and sent together as ?descending colon polyps. The scope was retroflexed in the rectum. There were some mild internal hemorrhoids. The scope was straightened and removed. The patient was awakened and brought to recovery. Scope withdrawal time: 20 minutes Sedation time: 30 minutes EBL: 5 mL Findings: 2 small 5 mm ascending colon polyps and 2 small 5 mm descending colon polyps Post-procedure Recommendations: Will call with biopsy results Disposition: PACU
== END 2022-01-03 12:46 | disposition home or self-care (01) ==
PROVIDERS: Family Provider Family Medicine; PCP Family Medicine; Referring Provider Surgery; Visit Provider Surgery
PROC: 0DJD8ZZ Inspection of Lower Intestinal Tract, Via Natural or Artificial Opening Endoscopic (ICD-10-PCS; CPT 45378; principal; 2022-01-03 11:30)
DX: R19.5 Other fecal abnormalities (principal); D12.2 Benign neoplasm of ascending colon; D12.4 Benign neoplasm of descending colon
CPT/HCPCS: 45385; 99152; 99153; J2704; J3010

== ENCOUNTER → 2022-12-26 13:08 | Outpatient (CLI) | payer OTHER, SELFPAY ==
--- NOTE | 2022-12-26 | DI.RAD.S_ITS ---
PROCEDURE: XR CERVICAL SPINE 2V OR 3V INDICATIONS: NECK PAIN TECHNIQUE: 3 view(s) of the cervical spine were acquired. COMPARISON: [facility], CR, XR CERVICAL SPINE 2V OR 3V, 04/30/2018, 15:23. FINDINGS: Bones: Lateral view extends from the skull base to T1. No acute fracture or traumatic subluxation. Moderate multilevel degenerative changes including anterior osteophytosis, disc height loss and facet arthropathy, notably at C3-C4 and C6-C7. The lateral masses of C1 appear intact on the odontoid view. No suspicious bony lesions. Soft tissues: No prevertebral soft tissue swelling. Visualized lung apices are clear. IMPRESSION: 1. No acute fracture or traumatic subluxation of the cervical spine. 2. Moderate multilevel degenerative changes of the cervical spine, progressed since radiograph dated April 30, 2018. Dictated by: Liv Acuna M.D. on 12/26/2022 at 15:48 Approved by: Liv Acuna M.D. on 12/26/2022 at 15:52
== END ==
PROVIDERS: Family Provider Family Medicine; PCP Family Medicine; Referring Provider Family Medicine; Visit Provider Family Medicine
DX: M54.2 Cervicalgia (principal); M47.812 Spondylosis without myelopathy or radiculopathy, cervical region
CPT/HCPCS: 72040

== ENCOUNTER → 2022-12-30 09:11 | Outpatient (CLI) | payer OTHER, SELFPAY ==
[2023-01-01 21:40] LABS: Cortisol Fr ug/24hr urine 21 ug/24 hr (6-42); Cortisol, Free, Urine 13 ug/L (Undefined)
== END ==
PROVIDERS: Family Provider Family Medicine; PCP Family Medicine; Referring Provider Internal Medicine Endocrinology, Diabetes & Metabolism; Visit Provider Internal Medicine Endocrinology, Diabetes & Metabolism
DX: R23.2 Flushing (principal)
CPT/HCPCS: 82530

== ENCOUNTER → 2022-12-31 10:50 | Outpatient (CLI) | payer OTHER, SELFPAY ==
[2023-01-03 10:46] LABS: Normetanephrine Total 302 ug/24 hr (131-612); Urine, Metanephrine 84 ug/L (Undefined); Urine, Normetanephrine 168 ug/L (Undefined)
== END ==
PROVIDERS: Family Provider Family Medicine; PCP Family Medicine; Referring Provider Internal Medicine Endocrinology, Diabetes & Metabolism; Visit Provider Internal Medicine Endocrinology, Diabetes & Metabolism
DX: R23.2 Flushing (principal)
CPT/HCPCS: 83835

== ENCOUNTER → 2023-04-21 14:04 | Outpatient (CLI) | payer MEDICARE, SELFPAY ==
--- NOTE | 2023-04-21 14:06 | DI.MRI.S_ITS ---
PROCEDURE: MR THORACIC SPINE WO CON INDICATIONS: Thoracic radiculopathy TECHNIQUE: Noncontrast sagittal T1 spine echo and T2 fast spin echo, sagittal STIR, and T2 fast spin echo through the thoracic spine. COMPARISON: None. FINDINGS: Image quality: Excellent. Alignment and Curvature: There is normal bony alignment. Bone Marrow: Marrow is of normal overall signal. No acute vertebral body compression fractures. Suspected T6 vertebral hemangioma. Spinal Cord: Visualized spinal cord is normal in size and signal. Paraspinous Soft Tissues: No paravertebral masses. Miscellaneous: On axial images, central canal and foramina appear widely patent at all scanned levels. Mild disc height loss at T3-4, T4-5, T6-7, T7-8, T8-9, T9-10. IMPRESSION: Mild, multilevel degenerative disc disease without spinal canal narrowing or neural foraminal narrowing. Dictated by: Bran Esparza M.D. on 04/21/2023 at 16:51 Approved by: Bran Esparza M.D. on 04/21/2023 at 16:53
--- NOTE | 2023-04-21 14:06 | DI.RAD.S_ITS ---
Bone Density Report Name: WIL WERNER Age: 63 Sex: Female Ethnicity: White Date of : 1960 Indication: osteopenia; rheumatoid arthritis; Referring Provider: CRUZ BURKS Study: Bone densitometry was performed. Exam Date: April 21, 2023 Accession number: [id number] Bone Density: Region BMD T-score Z-score Classification AP Spine(L1-L4) 0.789 -2.3 -0.6 Osteopenia Femoral Neck (Left) 0.616 -2.1 -0.6 Osteopenia Total Hip (Left) 0.770 -1.4 -0.2 Osteopenia Femoral Neck (Right) 0.578 -2.4 -0.9 Osteopenia Total Hip (Right) 0.729 -1.7 -0.5 Osteopenia Total Hip Mean 0.750 -1.6 -0.4 Osteopenia World Health Organization criteria for BMD impression classify patients as: Normal (T-score at or above -1.0), Osteopenia (T-score between -1.0 and -2.5), or Osteoporosis (T-score at or below -2.5). 10-year Fracture Risk(1): Major Osteoporotic Fracture 15% Hip Fracture 3.2% Reported Risk Factors: [place] (), Neck BMD=0.578, BMI=23.9, rheumatoid arthritis (1) FRAX(R) Version 3.08. Fracture probability calculated for an untreated patient. Fracture probability may be lower if the patient has received treatment. Previous Exams: -- Region Exam Age BMD T-score BMD Change BMD Change Date g/cm2 vs Baseline vs Previous -- AP Spine (L1-L4) 04/21/2023 63 0.789 -2.3 -0.006 (-0.7%)# -0.006 (-0.7%)# 05/11/2018 58 0.795 -2.3 Total Hip(Left) 04/21/2023 63 0.770 -1.4 -0.040 (-5.0%)# -0.040 (-5.0%)# 05/11/2018 58 0.810 -1.1 Total Hip(Right) 04/21/2023 63 0.729 -1.7 -0.124 (-14.5%)# -0.124 (-14.5%)# 05/11/2018 58 0.853 -0.7 -- *Denotes significance at 95% confidence level, LSC for AP Spine = 0.022 g/cm2, LSC for Total Hip = 0.027 g/cm2 # Denotes dissimilar scan types or analysis methods Impression: The patient has low bone mass, based on the Right Femoral Neck T-score. The patient has an estimated ten-year risk of hip fracture of 3.2% and an estimated ten-year risk of major fracture of 15%, based on the WHO FRAX algorithm. No significant bone loss was observed. Discussion: BONE DENSITY IS LOW AT ONE OR MORE SKELETAL SITES. THE PATIENT'S BMD AND CLINICAL RISK FACTORS CONTRIBUTE TO THIS PATIENT'S INCREASED RISK OF FRACTURE. This patient's lowest T-score is low at one or more skeletal sites. It meets the World Health Organization's (WHO) criteria for low bone mass (T-score between -1.0 and -2.5). The patient's 10-year risk of hip fracture as calculated by FRAX exceeds the threshold where pharmacological therapy is recommended by the National Osteoporosis Foundation (NOF). However, all treatment decisions require clinical judgment and consideration of individual patient factors, including patient preferences, comorbidities, previous drug use, risk factors not captured in the FRAX model (e.g., frailty, falls, vitamin D deficiency, increased bone turnover, interval significant decline in bone density) and possible under or overestimation of fracture risk by FRAX. The patient should follow a healthful lifestyle (good nutrition with adequate calcium and vitamin D, and appropriate weight-bearing exercise). Follow-Up: Consider a repeat BMD and Vertebral Fracture Assessment (VFA) exam in 2 years or sooner if medically necessary, to reassess this patient's status. Reported by: LINA SIMENTAL MD on 04/21/2023 2:37:00 PM.
--- NOTE | 2023-04-21 14:06 | DI.MRI.S_ITS ---
PROCEDURE: MR CERVICAL SPINE WO CON INDICATIONS: Cervical radiculopathy TECHNIQUE: Noncontrast sagittal T1 spin echo and T2 fast spin echo, sagittal STIR, foraminal oblique sagittal T2 fast spin echo, and axial gradient echo or T2 fast spin echo through the cervical spine. COMPARISON: [facility], MR, MR CERVICAL SPINE WO CON, 12/31/2018, 17:43. FINDINGS: Image quality: Excellent. Alignment and Curvature: There is normal bony alignment. Bone Marrow: Marrow demonstrates normal overall signal. Spinal Cord: Visualized spinal cord has normal size and signal. No cerebellar tonsillar herniation. Paraspinous Soft Tissues: No paravertebral masses. Prevertebral soft tissues are normal in thickness. C2-C3: Normal appearance. C3-C4: Moderate disc height loss. Diffuse disc bulge. Mild superimposed central disc protrusion. C4-C5: Mild disc height loss. Diffuse disc bulge. C5-C6: Mild disc height loss. Bilateral uncovertebral hypertrophy. Diffuse disc bulge. [id number] bilateral neural foraminal narrowing. C6-C7: No significant disc height loss. Left-sided uncovertebral hypertrophy. C7-T1: Mild disc height loss. IMPRESSION: Multilevel degenerative disc disease, without severe spinal canal or neural foraminal narrowing. [id number]-ca-[id number] bilateral neural foraminal narrowing at C5-6 due to bilateral uncovertebral hypertrophy and diffuse disc bulge. Dictated by: Bran Esparza M.D. on 04/21/2023 at 16:47 Approved by: Bran Esparza M.D. on 04/21/2023 at 16:51
== END ==
LOC: RAD 14:05
PROVIDERS: Family Provider Family Medicine; PCP Family Medicine; Referring Provider Family Medicine; Visit Provider Family Medicine
DX: M85.851 Other specified disorders of bone density and structure, right thigh (principal); M50.11 Cervical disc disorder with radiculopathy, high cervical region; M48.02 Spinal stenosis, cervical region; M51.14 Intervertebral disc disorders with radiculopathy, thoracic region; Z78.0 Asymptomatic menopausal state
CPT/HCPCS: 72141; 72146; 77080

== ENCOUNTER → 2023-09-23 13:18 | Outpatient (CLI) | payer MEDICARE, SELFPAY ==
--- NOTE | 2023-09-23 13:19 | DI.MRI.S_ITS ---
PROCEDURE: MR KNEE RT WO CON INDICATIONS: Right knee pain TECHNIQUE: Noncontrast sagittal PD fast spin echo and T2 fast spin echo with fat saturation, sagittal 3-D FLASH with fat saturation; coronal T1 spin echo and PD fast spin echo with fat saturation, and axial PD fast spin echo with fat saturation through the knee. COMPARISON: [facility], MR, MR KNEE RT WO CON, 06/23/2020, 7:41. FINDINGS: Image quality: Excellent. Menisci: Truncated appearance of medial meniscus extending to both superior and inferior articulating surfaces which was also noted on previous study suggestive of chronic complex tear extending to both superior and inferior articulating surfaces. There is also interval development of oblique tear involving posterior horn of lateral meniscus extending to inferior articulating surface. Previously described free edge tear involving lateral meniscal body remains unchanged. The meniscal root ligaments appear intact. Cruciate ligaments: The anterior and posterior cruciate ligaments appear intact. Medial structures: The medial collateral ligament appears mildly thickened near its femoral insertion. Visualized portions of the pes anserinus tendons appear normal. No abnormal bursal fluid. Lateral structures: The lateral collateral ligament is thickened with intrasubstance T2 hyperintense signal. The long and short heads of the biceps femoris tendon appear intact. The popliteus tendon appears normal. Iliotibial band appears normal. Anterior structures: Distal quadriceps tendinosis at its superior patellar insertion is seen. Proximal patellar tendinosis is also seen. Patellar alignment is normal. No femoral trochlear dysplasia or ventral trochlear prominence. No edema in the infrapatellar fat pad. Bones and cartilage: No bone marrow contusions or fractures. 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 Joint space: There is small to moderate knee joint fluid. No Galloway's cyst. Normal appearing synovial plicae are incidentally noted. IMPRESSION: 1. Again noted is chronic appearing complex tear involving body and posterior horn of medial meniscus with extension to both superior and inferior articulating surfaces. Suggestion of interval oblique tear involving posterior horn of lateral meniscus extending to inferior articulating surface. Stable free edge tear involving lateral meniscal body. 2. The cruciate ligaments are intact. 3. Low-grade proximal MCL and LCL sprain. 4. Distal quadriceps tendinosis and proximal patellar tendinosis. 5. Hexy-ct-kokizvic tricompartmental osteoarthritis and chondromalacia most notably in medial femoral tibial compartment. No fracture or dislocation. Small to moderate joint effusion, no loose bodies. Dictated by: Devon Lemons M.D. on 09/24/2023 at 11:05 Approved by: Devon Lemons M.D. on 09/24/2023 at 11:17
== END ==
PROVIDERS: PCP Family Medicine; Referring Provider Family Medicine; Visit Provider Family Medicine
DX: S83.231A Complex tear of medial meniscus, current injury, right knee, initial encounter (principal); S83.281A Other tear of lateral meniscus, current injury, right knee, initial encounter; S83.411A Sprain of medial collateral ligament of right knee, initial encounter; S83.421A Sprain of lateral collateral ligament of right knee, initial encounter; M17.11 Unilateral primary osteoarthritis, right knee; M94.261 Chondromalacia, right knee; M25.461 Effusion, right knee
CPT/HCPCS: 73721

== ENCOUNTER → 2023-10-13 08:18 | Outpatient (CLI) | payer MEDICARE, SELFPAY ==
[2023-10-13 09:02] LABS: Add Manual Diff / Slide Review NO; Basophils Absolute Auto 0 /uL (0-100); Basophils Percent Auto 0.8 % (0-2); Eosinophils Absolute Auto 300 /uL (0-450); Eosinophils Percent Auto 5.8 % (2-4); Hematocrit 43.9 % (36-46); Hemoglobin 14.7 g/dL (12.0-16.0); Lymphocytes Absolute Auto 2000 /uL (1100-4500); Lymphocytes Percent Auto 33.4 % (25-40); Mean Corpuscular HGB Conc 33.6 % (30-36); Mean Corpuscular Volume 89.2 fL (80-100); Monocytes Absolute Auto 500 /uL (0-900); Monocytes Percent Auto 8.7 % (3-14); Neutrophils Absolute Auto 3000 /uL (1500-7000); Neutrophils Percent Auto 51.3 % (50-75); Platelet Count 256 X10^3/uL (150-400); Red Blood Cell Count 4.92 X10^6/uL (4.0-5.2); Red Cell Distribution Width 13.9 % (11.6-14.8); White Blood Cell Count 5.9 X10^3/uL (4.5-11.0)
[2023-10-13 09:32] LABS: Alanine Aminotransferase 21 IU/L (<35); Albumin 4.1 g/dL (3.5-5.0); Albumin Globulin Ratio 1.9 (1.0-2.8); Alkaline Phosphatase 74 U/L (38-126); Aspartate Aminotransferase 29 IU/L (14-36); BUN Creatinine Ratio 17.9 (6-22); Blood Urea Nitrogen 14 mg/dL (7-17); Calcium 9.3 mg/dL (8.4-10.2); Carbon Dioxide 29 mmol/L (22-32); Chloride 107 mmol/L (98-107); Cholesterol 250 mg/dL (140-199); Estimated Glomerular Filt Rate > 60 mL/min (>60); Globulin 2.2 g/dL (1.7-4.1); Glucose 84 mg/dL (80-110); HDL Cholesterol 69 mg/dL (40-60); HEMOLYSIS < 15 (0-50); LDL Cholesterol Calculated 159 mg/dL (<100); Potassium 4.4 mmol/L (3.4-5.1); Sodium 140 mmol/L (137-145); Total Protein 6.3 g/dL (6.3-8.2); Triglycerides 108 mg/dL (35-150)
[2023-10-13 10:21] LABS: Free T4, Direct Thyroxine 1.54 ng/dL (0.78-2.19)
== END ==
PROVIDERS: PCP Family Medicine; Referring Provider Family Medicine; Visit Provider Family Medicine
DX: E03.9 Hypothyroidism, unspecified (principal); E78.2 Mixed hyperlipidemia; R19.5 Other fecal abnormalities
CPT/HCPCS: 36415; 80053; 80061; 84439; 84443; 85025

== ENCOUNTER → 2024-03-29 13:36 | Outpatient (CLI) | payer MEDICARE, SELFPAY ==
--- NOTE | 2024-03-29 13:38 | DI.MRI.S_ITS ---
PROCEDURE: MR SHOULDER LT WO CON INDICATIONS: PAIN JOINT SHOULDER LEFT TECHNIQUE: Noncontrast oblique coronal T2 fast spin echo with fat saturation, oblique sagittal T1 spin echo and T2 fast spin echo with fat saturation, axial T1 spin echo and T2 fast spin echo with fat saturation through the shoulder. COMPARISON: [facility], CR, XR SHOULDER 2+ VIEWS LEFT, 03/25/2024, 9:42. FINDINGS: Image quality: Excellent. Rotator cuff: Mild to moderate supraspinatus and infraspinatus tendinosis. Teres minor tendon is intact. Mild subscapularis tendinosis. No significant rotator cuff tendon tearing. Rotator cuff musculature is normal in bulk. Bones and bursae: No acute trabecular bone injury or fracture. Small chronic traction cystic changes are seen at the posterior superior humeral head and the greater and lesser tuberosities near the rotator cuff tendon insertions. No large focal glenohumeral cartilage defect. Xatu-te-htzazqpw degenerative changes of the acromioclavicular joint. Small amount of fluid is seen in the subacromial/subdeltoid bursa. Physiologic amount of glenohumeral joint fluid. Capsule and soft tissues: Mild labral degeneration without a clearly defined tear. Probable sublabral foramen at the anterior superior labrum, a normal variant. Proximal biceps long head tendon demonstrates mild tendinosis. There is partial effacement of the fat signal in the rotator interval. The glenohumeral ligaments appear to be intact. IMPRESSION: 1. Mild moderate supraspinatus and infraspinatus tendinosis and mild subscapularis tendinosis. No significant rotator cuff tendon tearing. 2. Mild proximal biceps long head tendinosis. 3. Aqik-rd-exzerumu acromioclavicular joint osteoarthrosis. 4. Small subacromial/subdeltoid bursal effusion or mild bursitis. Approved by: Alessandro Peralta M.D. on 03/30/2024 at 11:35
== END ==
PROVIDERS: PCP Family Medicine; Referring Provider Orthopaedic Surgery; Visit Provider Orthopaedic Surgery
DX: M19.012 Primary osteoarthritis, left shoulder (principal); M75.92 Shoulder lesion, unspecified, left shoulder; M25.512 Pain in left shoulder
CPT/HCPCS: 73221

== ENCOUNTER → 2024-08-31 10:04 | Outpatient (CLI) | payer MEDICARE, SELFPAY ==
[2024-08-31 10:38] LABS: Add Manual Diff / Slide Review NO; Hematocrit 44.5 % (36-46); Hemoglobin 14.7 g/dL (12.0-16.0); Lymphocytes Absolute Auto 2000 /uL (1100-4500); Mean Corpuscular HGB Conc 33.1 % (30-36); Mean Corpuscular Hemoglobin 29.9 PG (26-34); Mean Corpuscular Volume 90.5 fL (80-100); Platelet Count 294 X10^3/uL (150-400)
[2024-08-31 11:07] LABS: Alanine Aminotransferase 24 IU/L (<35); Albumin 4.5 g/dL (3.5-5.0); Albumin Globulin Ratio 1.8 (1.0-2.8); Alkaline Phosphatase 65 U/L (38-126); Blood Urea Nitrogen 12 mg/dL (7-17); Calcium 9.5 mg/dL (8.4-10.2); Carbon Dioxide 24 mmol/L (22-32); Chloride 106 mmol/L (98-107); Cholesterol 255 mg/dL (140-199); Estimated Glomerular Filt Rate > 60 mL/min (>60); Globulin 2.5 g/dL (1.7-4.1); Glucose 88 mg/dL (70-99); HDL Cholesterol 84 mg/dL (40-60); HEMOLYSIS 22 (0-50); Potassium 4.7 mmol/L (3.4-5.1); Sodium 139 mmol/L (137-145); Total Protein 7.0 g/dL (6.3-8.2); Triglycerides 91 mg/dL (35-150)
[2024-08-31 11:28] LABS: TSH w/ Reflex to FT4 4.88 uIU/mL (0.47-4.68)
[2024-08-31 12:05] LABS: Free T4, Direct Thyroxine 1.93 ng/dL (0.78-2.19)
== END ==
PROVIDERS: PCP Family Medicine; Referring Provider Family Medicine; Visit Provider Family Medicine
DX: E03.9 Hypothyroidism, unspecified (principal); E78.2 Mixed hyperlipidemia; Z13.6 Encounter for screening for cardiovascular disorders
CPT/HCPCS: 36415; 80053; 80061; 84439; 84443; 85025

== ENCOUNTER 2024-09-14 14:37 | Emergency (ER) | payer MEDICARE, SELFPAY ==
[2024-09-14 15:07] VITALS: BP 139/77; PULSE 75; RESP 16; TEMP 37; O2SAT 97; BMI 23.8
[2024-09-14 17:57] VITALS: BP 134/81; PULSE 72; RESP 13; O2SAT 100
--- NOTE | 2024-09-14 18:19 | DI.CT.S_ITS ---
PROCEDURE: CT HEAD/BRAIN WO CON INDICATIONS: visual blurred eye pain TECHNIQUE: Noncontrast 4.5 mm thick angled axial sections acquired from the foramen magnum to the vertex, with coronal and sagittal reformats. For radiation dose reduction, the following was used: automated exposure control, adjustment of mA and/or kV according to patient size. COMPARISON: None. FINDINGS: Image quality: Diagnostic. CSF spaces: Basal cisterns are patent. No extra-axial fluid collections. Ventricles are normal in size and shape. Brain: No midline shift. No intracranial mass effect or hemorrhage. [place]- white matter interface is normal. Skull and face: Calvarium and visualized facial bones are intact, without suspicious lesions. Sinuses: Visualized sinuses and mastoids are clear. IMPRESSION: No acute intracranial pathology. Dictated by: Bran Esparza M.D. on 09/14/2024 at 18:52 Approved by: Bran Esparza M.D. on 09/14/2024 at 18:53
--- NOTE | 2024-09-14 20:09 | PC.NURSE ---
States woke up with pain around left eye. Recent ulnar nerve procedure on left arm 6 days ago. 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 Patient does have eye appt scheduled tomorrow morning. No visual difference to skin or appearance between left and right eye. States pain is to the touch.
--- NOTE | 2024-09-14 21:16 | ED.GENADULT ---
HPI - General Adult General Chief complaint: Eye Problems Stated complaint: Left eye pain . Pressure sore under Time Seen by Provider: 09/14/24 18:03 Source: patient Mode of arrival: Ambulatory History of Present Illness HPI narrative: 64-year-old female presents with pain under left eye radiating to the left ear region but also left upper gumline pain. She denies any vision changes difficulty swallowing sore throat cough fever chills body aches nausea vomiting diarrhea or sick contacts. She has not done anything for it. Nothing makes it better or worse. Other than what is stated 14 point review of systems negative Related Data Home Medications ?Medication ?Instructions ?Recorded ?Confirmed cholecalciferol (vitamin D3) 50 2,000 unit PO DAILY 05/13/18 09/14/24 mcg (2,000 unit) capsule hydrocodone 5 mg-acetaminophen 325 tab PO 09/14/24 09/14/24 mg tablet Previous Rx's ?Medication ?Instructions ?Recorded epinephrine 0.3 mg/0.3 mL 0.3 mg (0.3 mL) IM ONCE #2 ea 10/09/23 injection, auto-injector (EpiPen 2-Cristi) levothyroxine 125 mcg tablet 125 mcg PO DAILY Thyroidism #90 07/06/24 tabs doxycycline hyclate 100 mg capsule 100 mg PO BID #10 caps 09/14/24 Allergies Allergy/AdvReac Type Severity Reaction Status Date / Time cyclobenzaprine Allergy Severe insomnia, Verified 09/14/24 15:12 shaking venom-honey bee (BEE VENOM Allergy Mild Verified 09/14/24 15:12 (HONEY BEE)) Review of Systems Review of Systems ROS Unobtainable: All systems reviewed & are unremarkable except as noted in HPI and below Patient History Medical History (Updated 09/14/24 @ 21:19 by Darinel Beckham DO) Degenerative disc disease Mgr NOS wo ntrc w st mgr (03/09/11) Hypothyroidism (03/09/11) Knee osteoarthritis Hypothyroidism Rheumatoid arthritis (~1994) Migraines (~1986) Foot pain (~1984) Carpal tunnel syndrome (~2011) Total blindness (~1958) Hyperthyroidism Surgical History (Updated 07/13/24 @ 08:25 by Anne Mclean MD) History of knee replacement Anesthesia History of hand surgery (~2011) History of foot surgery (~1986) Family History Mother Stroke Social History household members: spouse alcohol intake: never Smoking Status: Never smoker alcohol intake frequency: 0-2 drinks per day Exam Narrative Exam Narrative: GENERAL: [64] year old patient appears stated age. Well-developed patient, in mild distress. HEAD: Atraumatic. Normocephalic. EYES: Pupils equal round and reactive. Extraocular motions intact. No scleral icterus. No injection or drainage. ENT: Nose without bleeding, purulent drainage. Throat without erythema, tonsillar hypertrophy or exudate. Airway patent. Left maxillary sinus tender to palpate NECK: Trachea midline. Non tender CARDIOVASCULAR: Regular rate and rhythm without murmurs, gallops, or rubs. RESPIRATORY: Clear to auscultation. Breath sounds equal bilaterally. No wheezes, rales, or rhonchi. GASTROINTESTINAL: Abdomen soft, non-tender, nondistended. EXTREMITIES: No edema or joint tenderness. BACK: Nontender without deformity or crepitance. No flank tenderness. NEURO: AOx3. SKIN: No rash or erythema of visible areas Initial Vital Signs Initial Vital Signs: Vital Signs Temperature 98.6 F 09/14/24 15:07 Pulse Rate 75 09/14/24 15:07 Respiratory Rate 16 09/14/24 15:07 Blood Pressure 139/77 09/14/24 15:07 Pulse Oximetry 97 09/14/24 15:07 Oxygen Delivery Method Room Air 09/14/24 15:07 Course Orders Ordered: ED Orders 09/14/24 18:19 CT head/brain wo con Stat Discontinued Medications Acetaminophen (Acetaminophen 325 Mg Tablet) 975 mg PO NOW ONE Stop: 09/14/24 21:16 Doxycycline Hyclate (Doxycycline Hyclate 100 Mg Tablet) 100 mg PO NOW ONE Stop: 09/14/24 21:16 Ibuprofen (Ibuprofen 400 Mg Tablet) 400 mg PO NOW ONE Stop: 09/14/24 21:16 Vital Signs Vital signs: Vital Signs - 8 hr 09/14/24 15:07 09/14/24 17:57 Temperature 98.6 F Pulse Rate 75 72 Respiratory Rate 16 13 Blood Pressure 139/77 134/81 Pulse Oximetry 97 100 Oxygen Delivery Method Room Air Medical Decision Making MDM Narrative Medical decision making narrative: Vital signs, nurse triage note, medication list, previous ER visits, and all imaging study reviewed. Patient given Tylenol ibuprofen and doxycycline will be DC on doxycycline. Differential diagnosis includes acute bacterial sinusitis, infraorbital cellulitis, dental caries. Will DC home on doxycycline follow up with eye MD appt teressa. Discharge Plan Departure Patient Disposition: Home Clinical Impression: Acute bacterial sinusitis Instructions: DI for Sinusitis Activity Restrictions/Additional Instructions: Return with new or worsening symptoms. Follow up with the eye appointment tomorrow. Take your medicine as directed. Prescriptions: New doxycycline hyclate 100 mg capsule 100 mg PO BID Qty: 10 0RF No Action hydrocodone-acetaminophen 5-325 mg tablet PO cholecalciferol (vitamin D3) 2,000 unit capsule 2,000 unit PO DAILY epinephrine [EpiPen 2-Cristi] 0.3 mg/0.3 mL auto-injector 0.3 mg IM ONCE Qty: 2 1RF Rx Instructions: as a single dose; may repeat once levothyroxine 125 mcg tablet 125 mcg PO DAILY MDD 1 Qty: 90 4RF Referrals: Anne Mclean MD [Primary Care Provider, Family Practice] Stand Alone Forms: Patient Portal/API
[2024-09-14] MEDS: ACETAMINOPHEN 325 MG TABLET 975 MG PO (21:17)
[2024-09-14] MEDS: DOXYCYCLINE HYCLATE 100 MG TABLET PO (21:17)
[2024-09-14 21:24] VITALS: BP 145/82; PULSE 74; RESP 18; O2SAT 98
== END 2024-09-14 21:25 | disposition home or self-care (01) ==
PROVIDERS: Emergency Provider Family Medicine; PCP Family Medicine
DX: J01.90 Acute sinusitis, unspecified (principal)
CPT/HCPCS: 70450; 99283; 99284

== ENCOUNTER → 2024-09-29 09:53 | Outpatient (CLI) | payer MEDICARE, SELFPAY ==
--- NOTE | 2024-09-29 09:55 | DI.MG.S_ITS ---
MM screening mammo BI: 09/29/2024. BI-RADS: 2 CLINICAL: 64-year old female for bilateral screening mammogram. Tyrer-Cuzick lifetime risk of 15.1%. Current reported family history of breast cancer: sister. The patient had a prior left breast biopsy. PRIOR EXAMS 12/06/2021, 07/13/2018, 06/22/2018. MAMMOGRAPHY TECHNIQUE: 2D and 3D (tomosynthesis) digital mammographic views obtained, with additional images as needed for full coverage. Current study was also evaluated with a Computer Aided Detection (CAD) system. DENSITY C. The breasts are heterogeneously dense, which may obscure small masses. MAMMOGRAPHY FINDINGS Right: No suspicious mass, asymmetry, microcalcification, or other abnormality seen. No significant change from comparison. Left: Biopsy marker present on the left. There are no suspicious masses, calcifications, or other findings in the breast. No significant change from comparison. IMPRESSION: Right * No evidence of malignancy. Left * No evidence of malignancy with benign findings. RECOMMENDATIONS Bilateral * Annual screening mammography. OVERALL ASSESSMENT CATEGORY BI-RADS-2: Benign. The [employer] recommends annual screening mammography beginning at age 40 for women with average risk of breast cancer. ELECTRONICALLY SIGNED: Renata Yin M.D. on 09/29/2024 at 10:54:07 PM PT Interpreting Station ID: [id number]
== END ==
LOC: MAMMO 09:54
PROVIDERS: PCP Family Medicine; Referring Provider Family Medicine; Visit Provider Family Medicine
DX: Z12.31 Encounter for screening mammogram for malignant neoplasm of breast (principal); Z80.3 Family history of malignant neoplasm of breast
CPT/HCPCS: 77063; 77067

== ENCOUNTER → 2025-01-04 15:04 | Outpatient (CLI) | payer MEDICARE, SELFPAY ==
--- NOTE | 2025-01-04 15:05 | DI.MRI.S_ITS ---
PROCEDURE: MR WRIST RT WO CON INDICATIONS: surgical planning for excision of mass. Right wrist pain TECHNIQUE: Noncontrast coronal proton density fast spin echo and T2 fast spin echo with fat saturation; coronal 3-D gradient echo, axial T1 spin echo and T2 fast spin echo with fat saturation, sagittal T1 spin echo through the wrist. COMPARISON: [facility], CR, XR WRIST RT MIN 3V, 12/27/2024, 8:40. FINDINGS: Image quality: Excellent. Bones and cartilage: The carpal bones are normally aligned. No fracture or dislocation. Mild edema involving mid to distal portion of triquetrum is seen without discrete fracture line. Similar edema is also noted involving pisiform without discrete fracture line. No evidence of avascular necrosis. Qtxa-lf-ogpqdtrc wrist joint osteoarthritic changes are seen most notably involving triscaphe joint and 1st CMC joint. Ext ostosis involving volar aspect of the trapezium is seen series 7, image 14 and measures approximately 4 x 3 millimeter in size. Carpal ligaments: The scapholunate and lunotriquetral ligaments appear intact. In the absence of intra-articular contrast, the extrinsic carpal ligaments are not well identified. On sagittal images, the pisohamate ligament appears intact. Triangular fibrocartilage complex: The triangular fibrocartilage appears intact. The adjacent meniscal homolog appears normal in the absence of intra-articular contrast. Mildly thickened extensor carpi ulnaris tendon at the level of distal ulnar and ulnar styloid is seen. Tendons and soft tissues: The carpal tunnel structures appear normal, including the median nerve. Fluid distension of flexor carpi radialis tendon sheath at the level of scaphoid is seen. There is suggestion of a small ganglion cyst lateral to the fluid distended flexor carpi radialis tendon she and measures 3 x 2 mm in size. The ulnar nerve appears normal within Guyon's canal. Thickening of the extensor carpi radialis longus and brevis tendons with mild fluid distension of the tendon sheath is seen at the level of distal radius and proximal carpal bones. Rest of the extensor tendons are intact. No soft tissue ganglion cysts. IMPRESSION: 1. Xctu-ar-apmwlmyk wrist joint osteoarthritis as above. No acute fracture or dislocation. Likely contusion involving triquetrum and adjacent pisiform. No evidence of avascular necrosis. No suspicious bony lesions. Benign-appearing ext ostosis over volar aspect of trapezium measures 4 x 3 millimeter in size. 2. No discrete soft tissue mass. Tiny ganglion cyst over volar aspect of scaphoid lateral to the radial carpi radialis tendon sheath. 3. Moderate grade tenosynovitis involving flexor carpi radialis tendon at the level of distal radius and proximal carpal row. Low-grade tenosynovitis involving 2nd extensor compartment at the level of distal radius and proximal carpal row. Rest of the extensor and flexor tendons are intact. 4. Scapholunate and lunotriquetral ligaments are intact. 5. No evidence of gross TFC tear. Dictated by: Devon Lemons M.D. on 01/05/2025 at 9:25 Approved by: Devon Lemons M.D. on 01/05/2025 at 9:49
--- NOTE | 2025-01-04 15:05 | DI.MRI.S_ITS ---
PROCEDURE: MR WRIST LT WO CON INDICATIONS: r/o vascular involvement. Left wrist pain TECHNIQUE: Noncontrast coronal proton density fast spin echo and T2 fast spin echo with fat saturation; coronal 3-D gradient echo, axial T1 spin echo and T2 fast spin echo with fat saturation, sagittal T1 spin echo through the wrist. COMPARISON: [facility], CR, XR WRIST LT MIN 3V, 12/27/2024, 8:40. [facility], MR, MR WRIST RT WO CON, 01/04/2025, 15:15. FINDINGS: Image quality: Excellent. Bones and cartilage: The carpal bones are normally aligned. T2 hyperintense signal within distal portion of the scaphoid is seen without discrete fracture line. Similar T2 hyperintense signal involving volar aspect of capitate and dorsal aspect of lunate are also seen. No discrete fracture line. Jbuz-xa-molnrkxa left wrist joint osteoarthritic changes are seen with joint space narrowing, subchondral sclerosis more notably involving 1st CMC joint and triscaphe joint. No evidence of avascular necrosis. No suspicious intraosseous lesions. Carpal ligaments: Sprain/low-grade intrasubstance partial-thickness tear involving volar aspect of scapholunate ligament is seen. The lunotriquetral ligament is intact. In the absence of intra-articular contrast, the extrinsic carpal ligaments are not well identified. On sagittal images, the pisohamate ligament appears intact. Triangular fibrocartilage complex: Suggestion of myxoid degenerative changes within triangular fibrocartilage near its ulnar insertion without definite TFC tear. The adjacent meniscal homolog appears normal in the absence of intra-articular contrast. The extensor carpi ulnaris tendon is thickened with subtle intrasubstance T2 hyperintense signal at the level of ulnar styloid. Tendons and soft tissues: The carpal tunnel structures appear normal, including the median nerve. The ulnar nerve appears normal within Guyon's canal. Small amount of fluid within flexor carpi radialis tendon sheath at the level of distal radius and proximal carpal row is seen. Small amount of fluid is also noted involving extensor carpi radialis and longus tendon she is at the level of proximal carpal row. Rest of the extensor and flexor tendons are intact. No soft tissue ganglion cysts. IMPRESSION: 1. Hjmz-wp-rbedqsbd wrist joint osteoarthritis. No fracture or dislocation. Contusion versus subcortical cystic changes involving multiple carpal bones as above. No evidence of avascular necrosis. 2. Suggestion of sprain/low-grade partial-thickness tear involving volar component of scapholunate ligament. The lunotriquetral ligament is intact. No full- thickness ligament rupture. 3. Degenerative changes noted involving triangular fibrocartilage near its ulnar insertion. No definite TFC tear. 4. Low-grade tenosynovitis involving flexor carpi radialis tendon and 2nd extensor compartment as above. Rest of the extensor and flexor tendons are intact. Dictated by: Devon Lemons M.D. on 01/05/2025 at 9:49 Approved by: Devon Lemons M.D. on 01/05/2025 at 9:57
== END ==
LOC: MRI 15:05
PROVIDERS: PCP Family Medicine; Referring Provider Orthopaedic Surgery; Visit Provider Orthopaedic Surgery
DX: M67.431 Ganglion, right wrist (principal); M67.432 Ganglion, left wrist; M19.032 Primary osteoarthritis, left wrist; M19.031 Primary osteoarthritis, right wrist; M65.932 Unspecified synovitis and tenosynovitis, left forearm; M65.931 Unspecified synovitis and tenosynovitis, right forearm
CPT/HCPCS: 73221